=== PATIENT | male | born 1960 | race Caucasian/White ===

== ENCOUNTER 2018-01-26 13:15 | Inpatient (IN) | payer OTHER ==
[~2018-01-26] VITALS: Ht 182.9 cm; Wt 96.5 kg
[2018-01-26 13:48] LABS: BASOPHILS ABSOLUTE AUTO 0.03 K/mm3 (0.00-0.23); BASOPHILS PERCENT AUTO 0 % (0-2); EOSINOPHILS ABSOLUTE AUTO 0.03 K/mm3 (0.00-0.68); EOSINOPHILS PERCENT AUTO 0 % (0-6); Hemoglobin 12.3 g/dL (13.5-17.5); IMMATURE GRAN ABSOLUTE AUTO 0.04 K/mm3 (0.00-0.10); IMMATURE GRAN PERCENT AUTO 0 % (0-1); LYMPHOCYTES ABSOLUTE AUTO 1.45 K/mm3 (0.84-5.20); LYMPHOCYTES PERCENT AUTO 12 % (21-46); MONOCYTES ABSOLUTE AUTO 0.47 K/mm3 (0.16-1.47); MONOCYTES PERCENT AUTO 4 % (4-13); Mean Corpuscular HGB 18.5 pg (26.0-34.0); Mean Corpuscular HGB Conc 30.8 g/dL (31.5-36.5); Mean Corpuscular Volume 60 fL (80-100); Mean Platelet Volume 10.1 fL (9.1-12.4); NEUTROPHILS ABSOLUTE AUTO 9.82 K/mm3 (1.96-9.15); NEUTROPHILS PERCENT AUTO 83 % (41-73); Platelet Count 271 K/mm3 (150-400); RDW Standard Deviation 33.1 fL (35.1-46.3); Red Blood Cell Count 6.65 M/mm3 (4.30-5.90); White Blood Cell Count 11.84 K/mm3 (4.00-11.30)
[2018-01-26 14:12] LABS: Alanine Aminotransfer (ALT/SGP 21 U/L (12-78); Albumin, Blood 3.6 g/dL (3.4-5.0); Albumin/Globulin Ratio 0.9 (0.8-1.8); Alk Phos 114 U/L (50-136); Anion Gap 11 mmol/L (6-16); Aspartate Aminotrans (AST/SGOT 90 U/L (12-37); Bilirubin, Total 1.1 mg/dL (0.1-1.0); Blood Urea Nitrogen 25 mg/dL (8-24); Bun/Creatinine Ratio 22.7 (12.0-20.0); CO2, Blood 23 mmol/L (21-32); Chloride, Blood 102 mmol/L (98-108); Glomerular Filtration Rate >60 (60-); Glucose, Blood 399 mg/dL (70-99); Potassium, Blood 4.4 mmol/L (3.5-5.5); Sodium, Blood 136 mmol/L (136-145); Total Protein, Blood 7.6 g/dL (6.4-8.2)
[2018-01-26 15:30] LABS: International Normalized Ratio 0.97; Prothrombin Time Results 10.1 Sec (9.7-11.5)
[2018-01-26 18:47] LABS: Creatine Kinase MB 184.8 ng/mL (0.0-3.6)
[2018-01-26 19:10] LABS: CPK Creatine Kinase 4180 U/L (39-308); Creatine Kinase MB Index 4.4 (0.0-4.0); Troponin I >200.000 ng/mL (0.000-0.040)
[2018-01-27 02:18] LABS: Hematocrit 34.2 % (37.0-53.0); Hemoglobin 10.5 g/dL (13.5-17.5); Mean Corpuscular HGB 18.9 pg (26.0-34.0); Mean Corpuscular HGB Conc 30.7 g/dL (31.5-36.5); Mean Corpuscular Volume 61 fL (80-100); Mean Platelet Volume 10.2 fL (9.1-12.4); Platelet Count 254 K/mm3 (150-400); RDW Coefficient Variation 16.5 % (11.7-14.2); RDW Standard Deviation 34.5 fL (35.1-46.3); Red Blood Cell Count 5.57 M/mm3 (4.30-5.90); White Blood Cell Count 14.75 K/mm3 (4.00-11.30)
[2018-01-27 02:25] LABS: Albumin, Blood 2.8 g/dL (3.4-5.0); Anion Gap 11 mmol/L (6-16); Blood Urea Nitrogen 25 mg/dL (8-24); Bun/Creatinine Ratio 19.5 (12.0-20.0); CHOL/HDL RATIO 11.1; CO2, Blood 21 mmol/L (21-32); Calcium, Blood 7.7 mg/dL (8.5-10.1); Chloride, Blood 110 mmol/L (98-108); Cholesterol 267 mg/dL (50-200); Creatine Kinase MB 142.1 ng/mL (0.0-3.6); Creatinine, Blood 1.28 mg/dL (0.60-1.20); Glomerular Filtration Rate >60 (60-); Glucose, Blood 265 mg/dL (70-99); HDL Cholesterol 24 mg/dL (>39); LDL/HDL RATIO 7.9; Low Density Lipoprotein Chol 189 mg/dL (0-110); Phosphorus, Blood 2.3 mg/dL (2.5-4.9); Potassium, Blood 4.2 mmol/L (3.5-5.5); Sodium, Blood 142 mmol/L (136-145); Triglycerides 271 mg/dL (30-160); Very Low Density Lipoprot Chol 54 mg/dL (6-32)
[2018-01-27 02:39] LABS: CPK Creatine Kinase 2817 U/L (39-308); Troponin I >200.000 ng/mL (0.000-0.040)
[2018-01-27 08:36] LABS: Creatine Kinase MB 86.1 ng/mL (0.0-3.6)
[2018-01-27 09:06] LABS: CPK Creatine Kinase 1868 U/L (39-308); Creatine Kinase MB Index 4.6 (0.0-4.0)
[2018-01-27 09:10] LABS: Troponin I >200.000 ng/mL (0.000-0.040)
[2018-01-28 04:23] LABS: BASOPHILS ABSOLUTE AUTO 0.02 K/mm3 (0.00-0.23); BASOPHILS PERCENT AUTO 0 % (0-2); EOSINOPHILS ABSOLUTE AUTO 0.01 K/mm3 (0.00-0.68); EOSINOPHILS PERCENT AUTO 0 % (0-6); Hematocrit 30.6 % (37.0-53.0); Hemoglobin 9.2 g/dL (13.5-17.5); IMMATURE GRAN ABSOLUTE AUTO 0.04 K/mm3 (0.00-0.10); IMMATURE GRAN PERCENT AUTO 0 % (0-1); LYMPHOCYTES ABSOLUTE AUTO 1.63 K/mm3 (0.84-5.20); LYMPHOCYTES PERCENT AUTO 12 % (21-46); MONOCYTES PERCENT AUTO 8 % (4-13); Mean Corpuscular HGB 18.5 pg (26.0-34.0); Mean Corpuscular HGB Conc 30.1 g/dL (31.5-36.5); Mean Corpuscular Volume 61 fL (80-100); NEUTROPHILS ABSOLUTE AUTO 10.54 K/mm3 (1.96-9.15); NEUTROPHILS PERCENT AUTO 80 % (41-73); Platelet Count 212 K/mm3 (150-400); RDW Coefficient Variation 16.6 % (11.7-14.2); RDW Standard Deviation 35.1 fL (35.1-46.3); Red Blood Cell Count 4.98 M/mm3 (4.30-5.90); White Blood Cell Count 13.24 K/mm3 (4.00-11.30)
[2018-01-28 04:37] LABS: International Normalized Ratio 1.03; Prothrombin Time Results 10.7 Sec (9.7-11.5)
[2018-01-28 04:51] LABS: Bun/Creatinine Ratio 20.7 (12.0-20.0); Calcium, Blood 7.3 mg/dL (8.5-10.1); Creatinine, Blood 1.4 mg/dL (0.60-1.20); Magnesium, Blood 1.8 mg/dL (1.6-2.4); Potassium, Blood 4.4 mmol/L (3.5-5.5)
[2018-01-28 05:09] LABS: Troponin I 65.7 ng/mL (0.000-0.040)
[2018-01-28 05:25] LABS: Creatine Kinase MB 18.3 ng/mL (0.0-3.6); Creatine Kinase MB Index 2.1 (0.0-4.0)
[2018-01-29 04:33] LABS: Bun/Creatinine Ratio 26.6 (12.0-20.0); Creatinine, Blood 1.39 mg/dL (0.60-1.20); Magnesium, Blood 1.8 mg/dL (1.6-2.4)
[2018-01-29 04:37] LABS: Troponin I 30.1 ng/mL (0.000-0.040)
[2018-01-29] MEDS ORDERED: ASPI325 PO (08:35)
[2018-01-29] MEDS ORDERED: CLOP75 PO (08:36)
[2018-01-29] MEDS ORDERED: ATOR80 PO (08:36)
[2018-01-29] MEDS ORDERED: Novolog Fl100 UNIT/1 (08:37)
[2018-01-29] MEDS ORDERED: INSDET100 SC (08:38)
[2018-01-29] MEDS ORDERED: METO25ER PO (08:38)
[2018-01-29] MEDS ORDERED: NITR.4SL SL (08:39)
== END 2018-01-29 09:32 | disposition home or self-care (01) | DRG 246 ==
LOC: ER 13:15 → ICUE 15:35 → ER 15:35 → ICUE 15:37 → ICUW 15:37 → ICUE 15:54
PROVIDERS: Emergency Medicine; Hospitalist; Internal Medicine; Internal Medicine Cardiovascular Disease
PROC: 0270356 Dilation of Coronary Artery, One Artery, Bifurcation, with Two Drug-eluting Intraluminal Devices, Percutaneous Approach (ICD-10-PCS; principal; 2018-01-26)
PROC: 3E0234Z Introduction of Serum, Toxoid and Vaccine into Muscle, Percutaneous Approach (ICD-10-PCS; 2018-01-26)
PROC: 5A2204Z Restoration of Cardiac Rhythm, Single (ICD-10-PCS; 2018-01-26)
PROC: 4A023N7 Measurement of Cardiac Sampling and Pressure, Left Heart, Percutaneous Approach (ICD-10-PCS; 2018-01-26)
PROC: B2111ZZ Fluoroscopy of Multiple Coronary Arteries using Low Osmolar Contrast (ICD-10-PCS; 2018-01-26)
DX: I21.19 ST elevation (STEMI) myocardial infarction involving other coronary artery of inferior wall (principal); R57.0 Cardiogenic shock; J96.91 Respiratory failure, unspecified with hypoxia; I31.3 Pericardial effusion (noninflammatory); Z23 Encounter for immunization; E78.5 Hyperlipidemia, unspecified; I10 Essential (primary) hypertension; E11.9 Type 2 diabetes mellitus without complications; N28.9 Disorder of kidney and ureter, unspecified
CPT/HCPCS: 36415; 71046; 80048; 80053; 80061; 80069; 82550; 82553; 82947; 83036; 83735; 84484; 85025; 85027; 85610; 85730; 86850; 86900; 86901; 92960; 93005; 93010; 93306; 93308; 93458; 96361; 96374; 96375; 99152; 99153; 99285; C1725; C1769; C1874; C1894; C9113; C9606; J0153; J1265; J1644; J1815; J2250; J2405; J2550; J3010; J3246; J7030; J7040; J7060; Q9967

== ENCOUNTER → 2018-05-26 | Outpatient (CLI) | payer OTHER ==
[~2018-05-26] MED LIST: ASPI325 PO; ATOR80 PO; CLOP75 PO; INSDET100 SC; METO25ER PO; NITR.4SL SL; Novolog Fl100 UNIT/1
[2018-05-26 10:40] LABS: Bun/Creatinine Ratio 26.6 (12.0-20.0); Calcium, Blood 9.3 mg/dL (8.5-10.1); Creatinine, Blood 1.39 mg/dL (0.60-1.20); Potassium, Blood 4.6 mmol/L (3.5-5.5)
== END ==
LOC: LAB SHORT 08:24 → OLS 08:24
PROVIDERS: Registered Nurse
DX: E11.65 Type 2 diabetes mellitus with hyperglycemia (principal)
CPT/HCPCS: 36415; 80048; 83036

== ENCOUNTER → 2019-05-13 | Outpatient (CLI) | payer OTHER ==
[2019-05-13 13:37] LABS: Stool Occult Bld Immuno 1 Negative (NEGATIVE)
== END | disposition home or self-care (01) ==
LOC: LAB 10:00 → LAB SHORT 10:00
PROVIDERS: Family Medicine
DX: Z12.11 Encounter for screening for malignant neoplasm of colon (principal)
CPT/HCPCS: 82274

== ENCOUNTER → 2019-09-21 | Outpatient (CLI) | payer OTHER ==
[2019-09-21 17:26] LABS: Protein, Urine Random 436.7 mg/dL (0.0-11.9)
== END | disposition home or self-care (01) ==
LOC: LAB 14:00 → LAB SHORT 14:00
PROVIDERS: Internal Medicine
DX: N18.3 Chronic kidney disease, stage 3 (moderate) (principal)
CPT/HCPCS: 82570; 84156

== ENCOUNTER → 2019-09-28 | Outpatient (CLI) | payer OTHER ==
[2019-09-28 12:05] LABS: Protein, Urine Quantitative 373.7 mg/dL (0.0-11.9)
== END | disposition home or self-care (01) ==
LOC: OLS 08:58 → LAB SHORT 08:58
PROVIDERS: Internal Medicine
DX: N18.3 Chronic kidney disease, stage 3 (moderate) (principal)
CPT/HCPCS: 81050; 84156

== ENCOUNTER 2020-01-01 10:29 | Day surgery (SDC) | payer OTHER ==
[~2020-01-01] VITALS: Ht 182.9 cm; Wt 97.4 kg
[~2020-01-01 10:29] MED LIST changes: +ASPI325EC PO; +BASAGLAR K100 UNIT/2 SC; +ERGO50000 PO; +Humalog100 UNIT/1 SC; +LOSA50 PO; +NITROGLYCERIN0.4 MG SL
== END 2020-01-01 13:25 | disposition home or self-care (01) ==
LOC: ORSCSDS 10:29
PROVIDERS: Internal Medicine Gastroenterology
PROC: 0DB88ZX Excision of Small Intestine, Via Natural or Artificial Opening Endoscopic, Diagnostic (ICD-10-PCS; principal; 2020-01-01 11:45)
PROC: 0DB68ZX Excision of Stomach, Via Natural or Artificial Opening Endoscopic, Diagnostic (ICD-10-PCS; principal; 2020-01-01 11:45)
PROC: 0DB58ZX Excision of Esophagus, Via Natural or Artificial Opening Endoscopic, Diagnostic (ICD-10-PCS; principal; 2020-01-01 11:45)
PROC: 0DJD8ZZ Inspection of Lower Intestinal Tract, Via Natural or Artificial Opening Endoscopic (ICD-10-PCS; 2020-01-01 11:45)
DX: D50.9 Iron deficiency anemia, unspecified (principal); K22.10 Ulcer of esophagus without bleeding; K44.9 Diaphragmatic hernia without obstruction or gangrene; K29.80 Duodenitis without bleeding; E78.5 Hyperlipidemia, unspecified; K22.2 Esophageal obstruction; E11.9 Type 2 diabetes mellitus without complications; Z87.891 Personal history of nicotine dependence; I10 Essential (primary) hypertension; Z79.82 Long term (current) use of aspirin; Z79.4 Long term (current) use of insulin; Z79.899 Other long term (current) drug therapy
CPT/HCPCS: 82947; 88305; 88342; J2704; J7120

== ENCOUNTER 2020-11-02 06:45 | Day surgery (SDC) | payer OTHER ==
[~2020-11-02] VITALS: Ht 182.9 cm; Wt 99.0 kg
[~2020-11-02 06:45] MED LIST changes: -ASPI325EC PO; +Aspir 8181 MG PO; -BASAGLAR K100 UNIT/2 SC; +BASAGLAR K100 UNIT/6 SC; +FERSU300 PO; +FURO40 PO; +HUMALOG KW100 UNIT/1 SC; -Humalog100 UNIT/1 SC; +PANTOPRAZOLE SO40 M2 PO; +ROSUVASTATIN CA40 MG PO; +SODIUM BICARBO650 M1 PO; +TAMSULOSIN HCL0.4 M1 PO; +Vitamin D2000 UNIT PO
--- NOTE | 2020-11-02 08:20 | NUR ---
TO RECOVERY ROOM. PERMA CATH RIGHT UPPER SIDE DRY AND INTACT. STERI STRIPS INTACT AT RIGHT UPPER IJ. DENIES PAIN AT THIS TIME.
--- NOTE | 2020-11-02 09:45 | NUR ---
BLEEDING AT STERI STRIP SITEUPPER RIGHT PUNCTURE SITE. PRESSURE DRESSING APPLIED WITH GAUZE AND TAPE.
--- NOTE | 2020-11-02 10:05 | NUR ---
PRESSURE DRESSING RELEASED. STERI STRIPS REMOVED. SITE CLEANED WITH ALCOHOL. NEW STERI STRIPS APPLIED. GAUZE AND TAPE APPLIED. DRESSED FOR DISCHARGE. DISCHARGE INSTRUCTIONS GIVEN WITH VERBAL AND WRITTEN UNDERSTANDING.
--- NOTE | 2020-11-02 12:15 | NUR ---
2x2 is dry over steristrips. DISCHARGED TO [facility] FOR ANOTHER TEST VIA WHEELCHAIR.
== END 2020-11-02 12:45 | disposition home or self-care (01) ==
LOC: MHTC 06:45
DX: I13.2 Hypertensive heart and chronic kidney disease with heart failure and with stage 5 chronic kidney disease, or end stage renal disease (principal); E11.22 Type 2 diabetes mellitus with diabetic chronic kidney disease; N18.6 End stage renal disease; I50.9 Heart failure, unspecified; E78.5 Hyperlipidemia, unspecified; E11.40 Type 2 diabetes mellitus with diabetic neuropathy, unspecified; I25.10 Atherosclerotic heart disease of native coronary artery without angina pectoris; I25.2 Old myocardial infarction; Z95.5 Presence of coronary angioplasty implant and graft; Z79.82 Long term (current) use of aspirin; Z79.02 Long term (current) use of antithrombotics/antiplatelets; Z79.4 Long term (current) use of insulin; Z79.899 Other long term (current) drug therapy; Z87.891 Personal history of nicotine dependence
CPT/HCPCS: 36558; 76937; 77001; 82947; 99152; 99153; C1750; C1769; C1894; J1644; J2250; J3010; J7030

== ENCOUNTER 2021-01-23 05:32 | Day surgery (SDC) | payer OTHER, SELFPAY ==
[~2021-01-23] VITALS: Ht 182.9 cm; Wt 91.0 kg
--- NOTE | 2021-01-23 11:26 | NUR ---
RIGHT FEMORAL GROIN SITE SOFT NON-TENDER WITH NO HEMATOMA, NO PULSATILE BLEEDING WITH INTACT WADE AND TEGADERM IN PLACE. CALL LIGHT IN REACH; PT WATCHING TV.
--- NOTE | 2021-01-23 12:54 | NUR ---
PT HAS BEEN UP TO BATHROOM. R GROIN SITE REMAINS STABLE, NO BLEEDING OR HEMATOMA NOTED. DR MONTOYA SPEAKING WITH PT AT THIS TIME.
--- NOTE | 2021-01-23 13:13 | NUR ---
PT DRESSED, GROIN SITE STABLE. DISCHARGE INSTRUCTIONS REVIEWED WITH PT, VERBALIZES UNDERSTANDING. SALINE LOCK REMOVED WITH CATHETER INTACT. PT TO PRIVATE VEHICLE PER W/C.
[2021-06-06] MEDS ORDERED: GABA100 PO (15:18)
[2021-06-06] MEDS ORDERED: FERSU300 PO (15:19)
== END 2021-01-23 13:15 | disposition home or self-care (01) ==
LOC: MHTC 05:32
DX: I25.10 Atherosclerotic heart disease of native coronary artery without angina pectoris (principal); I50.9 Heart failure, unspecified; E11.22 Type 2 diabetes mellitus with diabetic chronic kidney disease; I13.2 Hypertensive heart and chronic kidney disease with heart failure and with stage 5 chronic kidney disease, or end stage renal disease; E78.5 Hyperlipidemia, unspecified; N18.6 End stage renal disease; Z99.2 Dependence on renal dialysis; Z79.4 Long term (current) use of insulin; Z79.01 Long term (current) use of anticoagulants; Z79.82 Long term (current) use of aspirin
CPT/HCPCS: 82947; 93458; 99152; 99153; C1769; C1894; J0360; J1644; J2250; J3010; J7030; J7050; Q9967

== ENCOUNTER 2021-03-24 00:15 | Day surgery (SDC) | payer OTHER | END 2021-03-24 10:20 | disposition home or self-care (01) | LOC: ATC 00:15 | DX: N18.6 End stage renal disease (principal); D63.8 Anemia in other chronic diseases classified elsewhere | CPT/HCPCS: 36415; 86850; 86900; 86901; 86923; J7050; P9016 ==

== ENCOUNTER 2021-06-07 11:02 | Day surgery (SDC) | payer OTHER ==
[~2021-06-07] VITALS: Ht 182.9 cm; Wt 91.0 kg
[~2021-06-07 11:02] MED LIST changes: +GABA100 PO
--- NOTE | 2021-06-07 13:50 | NUR ---
PT MEDICATED WITH 8MG ZOFRAN IV PER VERBAL ORDERS. APPEARED TO HAVE A NAUSEA INDUCED VAGAL EPISODE. BRIEF DECREASE IN HEARTRATE, DIAPHORESIS PRESENT, SLIGHT PALLOR TO SKIN NOTED. PT STATES HE HAD TROUBLE WITH NARCOTICS POST BYPASS SURGERY AND THIS FELT SIMILAR. INSTRUCTED PATIENT TO LET STAFF KNOW DURING ANY FUTURE PROCEDURES THAT SOME NARCOTICS HAVE CAUSED NAUSEA IN THE PAST.
--- NOTE | 2021-06-07 14:19 | NUR ---
PT SITTING UP IN RECLINER. CURRENTLY DENIES ANY PAIN OR NAUSEA. RIGHT ARM REMAINS NUMB FROM NERVE BLOCK.
--- NOTE | 2021-06-07 15:28 | NUR ---
IV DC'D, CATH INTACT. PT GIVEN DC INSTRUCTIONS, VERBALIZED UNDERSTANDING. WAS NAUSEATED AND HAD ADDITIONAL EPISODE OF EMESIS PRIOR TO DISCHARGE, BUT STILL WANTED TO BE DC'D HOME. OUT TO CAR VIA WHEELCHAIR, ACCOMPANIED BY DAUGHTER.
== END 2021-06-07 15:30 | disposition home or self-care (01) ==
LOC: MHTC 11:02
DX: I13.2 Hypertensive heart and chronic kidney disease with heart failure and with stage 5 chronic kidney disease, or end stage renal disease (principal); I50.9 Heart failure, unspecified; N18.6 End stage renal disease; E11.22 Type 2 diabetes mellitus with diabetic chronic kidney disease; I25.10 Atherosclerotic heart disease of native coronary artery without angina pectoris; E78.5 Hyperlipidemia, unspecified; Z95.5 Presence of coronary angioplasty implant and graft; E11.40 Type 2 diabetes mellitus with diabetic neuropathy, unspecified
CPT/HCPCS: 76937; 82947; 99152; 99153; A9270; C1725; C1769; C1889; C1894; J1644; J2250; J2405; J3010; J7030; J7040

== ENCOUNTER 2021-10-29 20:41 | Inpatient (IN) | payer OTHER ==
[~2021-10-29] VITALS: Ht 182.9 cm; Wt 97.5 kg
[~2021-10-29 20:41] MED LIST changes: -BASAGLAR K100 UNIT/6 SC; +INSULANPEN SC
[2021-10-29 21:23] LABS: Source, Urine Clean Catch
[2021-10-29 21:25] LABS: Appearance, Urine Clear (Clear); Bilirubin, Urine Neg (Neg); Blood, Urine 2+ (Neg); Color, Urine Yellow (P-Yellow); Glucose Qualitative, Urine Neg (Neg); Ketones, Urine Neg (Neg); Leukocyte Esterase, Urine Neg (Neg); Nitrite, Urine Neg (Neg); Protein, Urine 3+ (Neg); Urobilinogen, Urine NORM (Normal)
[2021-10-29 21:34] LABS: Bacteria Not Seen /hpf; Squamous Epithelial Cells Not Seen /hpf (Few); White Blood Cells, Urine Not Seen /hpf (0-5)
[2021-10-29 22:14] LABS: BASOPHILS ABSOLUTE AUTO 0.04 K/mm3 (0.00-0.23); BASOPHILS PERCENT AUTO 0 % (0-2); EOSINOPHILS ABSOLUTE AUTO 0.03 K/mm3 (0.00-0.68); EOSINOPHILS PERCENT AUTO 0 % (0-6); Hematocrit 34.8 % (37.0-53.0); Hemoglobin 10.8 g/dL (13.5-17.5); IMMATURE GRAN ABSOLUTE AUTO 0.04 K/mm3 (0.00-0.10); IMMATURE GRAN PERCENT AUTO 0 % (0-1); LYMPHOCYTES ABSOLUTE AUTO 0.61 K/mm3 (0.84-5.20); LYMPHOCYTES PERCENT AUTO 5 % (21-46); MONOCYTES PERCENT AUTO 4 % (4-13); Mean Corpuscular HGB 20.8 pg (26.0-34.0); Mean Corpuscular Volume 67 fL (80-100); NEUTROPHILS ABSOLUTE AUTO 10.18 K/mm3 (1.96-9.15); NEUTROPHILS PERCENT AUTO 89 % (41-73); Platelet Count 154 K/mm3 (150-400); RDW Coefficient Variation 18.5 % (11.7-14.2); RDW Standard Deviation 41.8 fL (35.1-46.3); Red Blood Cell Count 5.19 M/mm3 (4.30-5.90)
[2021-10-29 22:32] LABS: Albumin, Blood 4.1 g/dL (3.4-5.0); Bilirubin, Total 2.7 mg/dL (0.1-1.0); Bun/Creatinine Ratio 10.3 (12.0-20.0); Calcium, Blood 9.5 mg/dL (8.5-10.1); Creatinine, Blood 6.38 mg/dL (0.60-1.20); Globulin, Blood 4.3 g/dL (2.2-4.0); Potassium, Blood 4.5 mmol/L (3.5-5.5); Total Protein, Blood 8.4 g/dL (6.4-8.2)
[2021-10-29 23:58] LABS: Influenza A, PCR NEGATIVE (NEGATIVE); Influenza B, PCR NEGATIVE (NEGATIVE); Resp Syncytial Virus, PCR NEGATIVE (NEGATIVE); SARS-Cov-2 (COVID-19) PCR, MMC NEGATIVE (NEGATIVE)
[2021-10-30 08:20] LABS: BASOPHILS ABSOLUTE AUTO 0.03 K/mm3 (0.00-0.23); BASOPHILS PERCENT AUTO 0 % (0-2); EOSINOPHILS ABSOLUTE AUTO 0.01 K/mm3 (0.00-0.68); EOSINOPHILS PERCENT AUTO 0 % (0-6); Hematocrit 31.4 % (37.0-53.0); Hemoglobin 9.6 g/dL (13.5-17.5); IMMATURE GRAN ABSOLUTE AUTO 0.03 K/mm3 (0.00-0.10); IMMATURE GRAN PERCENT AUTO 0 % (0-1); LYMPHOCYTES ABSOLUTE AUTO 0.43 K/mm3 (0.84-5.20); LYMPHOCYTES PERCENT AUTO 6 % (21-46); MONOCYTES ABSOLUTE AUTO 0.43 K/mm3 (0.16-1.47); MONOCYTES PERCENT AUTO 6 % (4-13); Mean Corpuscular HGB 20.6 pg (26.0-34.0); Mean Corpuscular HGB Conc 30.6 g/dL (31.5-36.5); Mean Corpuscular Volume 68 fL (80-100); NEUTROPHILS ABSOLUTE AUTO 6.95 K/mm3 (1.96-9.15); NEUTROPHILS PERCENT AUTO 88 % (41-73); Platelet Count 123 K/mm3 (150-400); RDW Coefficient Variation 18.3 % (11.7-14.2); RDW Standard Deviation 42.8 fL (35.1-46.3); Red Blood Cell Count 4.65 M/mm3 (4.30-5.90); White Blood Cell Count 7.88 K/mm3 (4.00-11.30)
[2021-10-30 08:43] LABS: Albumin, Blood 3.3 g/dL (3.4-5.0); Anion Gap 15 mmol/L (6-16); Blood Urea Nitrogen 72 mg/dL (8-24); Bun/Creatinine Ratio 11.2 (12.0-20.0); CO2, Blood 20 mmol/L (21-32); Calcium, Blood 8.5 mg/dL (8.5-10.1); Chloride, Blood 101 mmol/L (98-108); Creatinine, Blood 6.43 mg/dL (0.60-1.20); Ferritin, Serum 457 ng/mL (26-388); Glomerular Filtration Rate 9 (60-); Glucose, Blood 112 mg/dL (70-99); Iron Serum 15 ug/dL (65-175); Percent Saturation 5.9 % (20.0-50.0); Phosphorus, Blood 4.1 mg/dL (2.5-4.9); Potassium, Blood 4.4 mmol/L (3.5-5.5); Sodium, Blood 136 mmol/L (136-145); Total Iron Binding Capacity 255 ug/dL (250-450)
[2021-10-30 12:30] LABS: Vancomycin, Random 14.8 ug/mL
--- NOTE | 2021-10-30 18:44 | NUR ---
ALERT AND ORIENTED, COMPLAINS OF CHILLS, FEBRILE. MEDICATED WITH TYLENOL 1000MG PO, EFFECTIVE. RECEIVED DIALYSIS, TOLERATED WELL. SAFETY MAINTAINED WITH CALL LACEY IN REACH.
--- NOTE | 2021-10-31 04:03 | NUR ---
TELE CHANGE PER SANDHYA CARDIOVASCULAR RADIOLOGIC TECHNOLOGIST PT HAS BEEN EXPERIENCING TRIGEMINAL PVC'S SINCE APPROX 0300. PT ASSESSED, DENIED SOB, CHEST PAIN, OR PRESSURE. VITALS ASSESSED. DR. COOMBS CONTACTED AND VERIFIED AM LAB DRAW OF BMP AND MAG. WILL CONTINUE TO MONITOR PT FOR S/S.
--- NOTE | 2021-10-31 04:21 | NUR ---
SHIFT SUMMARY PT A&O X4 AND IN PLEASENT MOOD T/O SHIFT. TELE CHANGE DURING SHIFT, DR. COOMBS CONTACTED- SEE NOTE. FEVER MEDICATED PER EMAR. PT TOLERATING ORAL INTAKE, DENIES N/V, AND VOIDING WELL. O2 SATS HAVE BEEN LOW 90'S WHILE ASLEEP- 2 L NC DURING REST, >95%. CALL LIGHT W/IN REACH.
[2021-10-31 05:06] LABS: BASOPHILS ABSOLUTE AUTO 0.03 K/mm3 (0.00-0.23); BASOPHILS PERCENT AUTO 1 % (0-2); EOSINOPHILS ABSOLUTE AUTO 0.01 K/mm3 (0.00-0.68); EOSINOPHILS PERCENT AUTO 0 % (0-6); Hematocrit 28.1 % (37.0-53.0); Hemoglobin 8.6 g/dL (13.5-17.5); IMMATURE GRAN ABSOLUTE AUTO 0.04 K/mm3 (0.00-0.10); IMMATURE GRAN PERCENT AUTO 1 % (0-1); LYMPHOCYTES ABSOLUTE AUTO 0.73 K/mm3 (0.84-5.20); LYMPHOCYTES PERCENT AUTO 11 % (21-46); MONOCYTES ABSOLUTE AUTO 0.36 K/mm3 (0.16-1.47); MONOCYTES PERCENT AUTO 6 % (4-13); Mean Corpuscular HGB 20.7 pg (26.0-34.0); Mean Corpuscular HGB Conc 30.6 g/dL (31.5-36.5); Mean Corpuscular Volume 68 fL (80-100); NEUTROPHILS ABSOLUTE AUTO 5.21 K/mm3 (1.96-9.15); NEUTROPHILS PERCENT AUTO 82 % (41-73); Platelet Count 114 K/mm3 (150-400); RDW Coefficient Variation 18.3 % (11.7-14.2); RDW Standard Deviation 43.1 fL (35.1-46.3); Red Blood Cell Count 4.15 M/mm3 (4.30-5.90); White Blood Cell Count 6.38 K/mm3 (4.00-11.30)
[2021-10-31 06:07] LABS: Magnesium, Blood 1.7 mg/dL (1.6-2.4)
[2021-10-31 06:09] LABS: Albumin, Blood 2.8 g/dL (3.4-5.0); Albumin/Globulin Ratio 0.9 (0.8-1.8); Bilirubin, Total 2.4 mg/dL (0.1-1.0); Bun/Creatinine Ratio 9.4 (12.0-20.0); Calcium, Blood 8.2 mg/dL (8.5-10.1); Creatinine, Blood 4.89 mg/dL (0.60-1.20); Globulin, Blood 3.2 g/dL (2.2-4.0); Potassium, Blood 3.6 mmol/L (3.5-5.5)
--- NOTE | 2021-10-31 09:15 | NUR ---
Echocardiogram completed.
[2021-10-31 15:32] LABS: Vancomycin, Random 7.6 ug/mL
--- NOTE | 2021-10-31 18:01 | NUR ---
PATIENT CURRENTLY IN ROOM WITH DR CASEY WHO IS REMOVING HIS HD CATH AT THIS TIME. PATIENT HAD SOME VOMITING THIS AM X 1, MEDICATED WITH ZOFRAN AND EFFECTIVE. PATIENT HAS HAD SOME DIARREA TODAY WELL, NEW ORDERS RECIEVED, IMMODIUM GIVEN. PATIENT IS ALERT AND ORIENTED X 4. ABLE TO MAKE NEEDS AND WANTS KNOWN. CALL LIGHT AND WATER IN EASY REACH. DR CHRISTINA CONSULTED DR SMALL TODAY FOR PATIENTS TOE WITH POSSIBLE SURGERY TOMORROW. NO SIGNS OR SYMPTOMS ACUTE DISTRESS NOTED. CALL LIGHT AND WATER IN EASY REACH. WILL MONITOR.
--- NOTE | 2021-11-01 03:51 | NUR ---
SHIFT SUMMARY PT A&O AND IN PLEASENT MOOD T/O SHIFT. PT RESTED COMFORTABLY IN BED T/O NIGHT. PT DENIES PAIN. TOLERATING PO INTAKE AND VOIDING WELL. VSS. CALL LIGHT W/IN REACH. DRESSING TO R UPPER CHEST WALL POST PERMA CATH REMOVAL, CDI. PLATINUM SMITH REPORTS NSR @ 81.
[2021-11-01 05:33] LABS: BASOPHILS ABSOLUTE AUTO 0.02 K/mm3 (0.00-0.23); BASOPHILS PERCENT AUTO 0 % (0-2); EOSINOPHILS ABSOLUTE AUTO 0.06 K/mm3 (0.00-0.68); EOSINOPHILS PERCENT AUTO 1 % (0-6); IMMATURE GRAN ABSOLUTE AUTO 0.02 K/mm3 (0.00-0.10); IMMATURE GRAN PERCENT AUTO 0 % (0-1); LYMPHOCYTES ABSOLUTE AUTO 0.98 K/mm3 (0.84-5.20); LYMPHOCYTES PERCENT AUTO 20 % (21-46); MONOCYTES ABSOLUTE AUTO 0.49 K/mm3 (0.16-1.47); MONOCYTES PERCENT AUTO 10 % (4-13); Mean Corpuscular HGB 20.9 pg (26.0-34.0); Mean Corpuscular Volume 67 fL (80-100); NEUTROPHILS ABSOLUTE AUTO 3.31 K/mm3 (1.96-9.15); NEUTROPHILS PERCENT AUTO 68 % (41-73); Platelet Count 111 K/mm3 (150-400); RDW Coefficient Variation 17.9 % (11.7-14.2); White Blood Cell Count 4.88 K/mm3 (4.00-11.30)
[2021-11-01 06:52] LABS: Albumin, Blood 2.9 g/dL (3.4-5.0); Anion Gap 17 mmol/L (6-16); Blood Urea Nitrogen 64 mg/dL (8-24); Bun/Creatinine Ratio 10.5 (12.0-20.0); CO2, Blood 23 mmol/L (21-32); Calcium, Blood 8.5 mg/dL (8.5-10.1); Chloride, Blood 96 mmol/L (98-108); Creatinine, Blood 6.12 mg/dL (0.60-1.20); Glomerular Filtration Rate 9 (60-); Glucose, Blood 157 mg/dL (70-99); Phosphorus, Blood 4.6 mg/dL (2.5-4.9); Potassium, Blood 3.8 mmol/L (3.5-5.5); Sodium, Blood 136 mmol/L (136-145)
--- NOTE | 2021-11-01 17:32 | NUR ---
PATIENT IS CURRENTLY SITTING UP IN BED EATING DINNER. NO SIGNS OR SYMPTOMS ACUTE DISTRESS NOTED, NO COMPLAINTS OF PAIN. NO COMPLAINTS OF NAUSEA TODAY. DIARREA MULTIPLE TIMES TODAY, MEDICATED WITH IMMODIUM PER ORDERS. DR CHÁVEZ SAW PATIENT TODAY AND INFORMED HIM HE WILL BE NPO AFTER MIDNIGHT TONIGHT FOR AMPUTATION OF RIGHT FOOT SECOND TOE TOMORROW. PATIENT IS ALERT AND WAKE, ABLE TO MAKE NEEDS AND WANTS KNOWN. CONTINUES IV ANTIBIOTICS. APPETITE BETTER TODAY. CALL LIGHT AND WATER IN EASY REACH. WILL MONITOR.
[2021-11-02 06:13] LABS: Anion Gap 12 mmol/L (6-16); Blood Urea Nitrogen 79 mg/dL (8-24); CO2, Blood 28 mmol/L (21-32); Calcium, Blood 8.4 mg/dL (8.5-10.1); Chloride, Blood 96 mmol/L (98-108); Creatinine, Blood 7.21 mg/dL (0.60-1.20); Glomerular Filtration Rate 8 (60-); Glucose, Blood 194 mg/dL (70-99); Phosphorus, Blood 5.1 mg/dL (2.5-4.9); Potassium, Blood 3.8 mmol/L (3.5-5.5); Sodium, Blood 136 mmol/L (136-145); Vancomycin, Random 14.9 ug/mL
--- NOTE | 2021-11-02 06:26 | NUR ---
SHIFT SUMMARY A/O X4, VSS, TOLERATING DIET, NPO SINCE MIDNIGHT FOR SURGERY, DENIES PAIN. NO ACUTE EVENTS THIS SHIFT. CALL LIGHT IN REACH, WILL CTM AND REPORT TO ONCOMING DAY RN.
[2021-11-02 07:04] LABS: BASOPHILS ABSOLUTE AUTO 0.02 K/mm3 (0.00-0.23); BASOPHILS PERCENT AUTO 0 % (0-2); EOSINOPHILS ABSOLUTE AUTO 0.14 K/mm3 (0.00-0.68); EOSINOPHILS PERCENT AUTO 3 % (0-6); IMMATURE GRAN ABSOLUTE AUTO 0.02 K/mm3 (0.00-0.10); IMMATURE GRAN PERCENT AUTO 0 % (0-1); LYMPHOCYTES ABSOLUTE AUTO 1.39 K/mm3 (0.84-5.20); LYMPHOCYTES PERCENT AUTO 25 % (21-46); MONOCYTES PERCENT AUTO 9 % (4-13); Mean Corpuscular HGB 20.8 pg (26.0-34.0); Mean Corpuscular Volume 67 fL (80-100); NEUTROPHILS ABSOLUTE AUTO 3.42 K/mm3 (1.96-9.15); NEUTROPHILS PERCENT AUTO 62 % (41-73); Platelet Count 125 K/mm3 (150-400); RDW Coefficient Variation 17.9 % (11.7-14.2); RDW Standard Deviation 41.9 fL (35.1-46.3); Red Blood Cell Count 4.33 M/mm3 (4.30-5.90); White Blood Cell Count 5.49 K/mm3 (4.00-11.30)
--- NOTE | 2021-11-02 10:04 | NUR ---
DISCHARGE: DISCHARGE INSTUCTIONS GIVEN AT THIS TIME. IV REMOVED. PATIENT VERBALIZED UNDERSTANDING OF INSTUCTIONS. PRESCRIPTIONS GIVEN TO PATIENT. ALL PERSONAL BELONGINGS LEFT WITH PATIENT. NO SIGNS OR SYMPTOMS ACUTE DISTERSS NOTED.
--- NOTE | 2021-11-02 11:29 | NUR ---
THE PATIENT WAS TO DAY SURGERY FOR HIS PROCEDURE.
--- NOTE | 2021-11-02 12:40 | NUR ---
11/02/21 1240 Kaylynn Michelle NO PREOP ANTIBIOTICS ORDERED PER .
--- NOTE | 2021-11-02 18:35 | NUR ---
PATIENT CURRENTLY LYING IN BED WITH NO SIGNS OR SYMPTOMS ACUTE DISTRESS NOTED. CALL LIGHT AND WATER IN EASY REACH. ABLE TO MAKE NEEDS AND WANTS KNOWN. PATIENT HAS SURGERY TODAY TO AMPUTATE PART OF HIS 2ND TOE ON RIGHT FOOT, DRESSING IS CDI, SURGICAL WALKING BOOT IN ROOM. PATIENT TO GO IN THE MORNING TO IR FOR HD CATH PLACEMENT. IV ANTIBIOTICS CONTINUE.
[2021-11-03 04:54] LABS: BASOPHILS ABSOLUTE AUTO 0.01 K/mm3 (0.00-0.23); BASOPHILS PERCENT AUTO 0 % (0-2); EOSINOPHILS PERCENT AUTO 0 % (0-6); Hemoglobin 10.3 g/dL (13.5-17.5); IMMATURE GRAN ABSOLUTE AUTO 0.02 K/mm3 (0.00-0.10); IMMATURE GRAN PERCENT AUTO 0 % (0-1); LYMPHOCYTES ABSOLUTE AUTO 0.83 K/mm3 (0.84-5.20); LYMPHOCYTES PERCENT AUTO 14 % (21-46); MONOCYTES ABSOLUTE AUTO 0.22 K/mm3 (0.16-1.47); MONOCYTES PERCENT AUTO 4 % (4-13); Mean Corpuscular HGB 20.6 pg (26.0-34.0); Mean Corpuscular HGB Conc 31.2 g/dL (31.5-36.5); Mean Corpuscular Volume 66 fL (80-100); NEUTROPHILS ABSOLUTE AUTO 4.93 K/mm3 (1.96-9.15); NEUTROPHILS PERCENT AUTO 82 % (41-73); Platelet Count 148 K/mm3 (150-400); RDW Coefficient Variation 18.1 % (11.7-14.2); RDW Standard Deviation 41.4 fL (35.1-46.3); White Blood Cell Count 6.01 K/mm3 (4.00-11.30)
[2021-11-03 05:26] LABS: Albumin, Blood 3.4 g/dL (3.4-5.0); Anion Gap 14 mmol/L (6-16); Blood Urea Nitrogen 87 mg/dL (8-24); Bun/Creatinine Ratio 12.2 (12.0-20.0); CO2, Blood 26 mmol/L (21-32); Calcium, Blood 8.9 mg/dL (8.5-10.1); Chloride, Blood 93 mmol/L (98-108); Creatinine, Blood 7.12 mg/dL (0.60-1.20); Glomerular Filtration Rate 8 (60-); Glucose, Blood 214 mg/dL (70-99); Phosphorus, Blood 5.2 mg/dL (2.5-4.9); Potassium, Blood 4.4 mmol/L (3.5-5.5); Sodium, Blood 133 mmol/L (136-145)
--- NOTE | 2021-11-03 07:11 | NUR ---
SHIFT SUMMARY POD1 R 2ND DIGIT TOE AMPUTATION, A/OX 4, VSS, TOLERATING DIET, NPO SINCE MIDNIGHT FOR HD CATHETER PLACEMENT LATER TODAY, DENIES PAIN, INDEPENDENT IN THE ROOM. NO ACUTE EVENTS THIS SHIFT, CALL LIGHT IN REACH, REPORT GIVEN TO DAY RN.
--- NOTE | 2021-11-03 17:07 | NUR ---
SHIFT SUMMARY: POD 1 RIGHT SECOND DIGIT AMPUTATION PATIENT IS ALERT AND ORIENTED X4. VS ARE WNL AND IS ON RA. PATIENT DENIES PAIN AT THIS TIME AND THROUGHOUT SHIFT. HIS RIGHT FOOT HAS GAUZE AND AN CAMMY WRAP THAT IS C/D/I. PULSES ARE STRONG AND IS ABLE TO WIGGLE OTHER TOES. PATIENT IS TOLERATING PO INTAKE. CALL LIGHT WITHIN REACH. DAUGHTER IS IN THE ROOM CURRENTLY. THE PLAN IS TO RECIEVE A TEMPORARY DIALYSIS PORT TONIGHT TO GET HIS DIALYSIS IN THE MORNING. THEN HE WILL RECIEVE HIS PERMANENT PORT ON SATURDAY.
--- NOTE | 2021-11-04 06:08 | NUR ---
VSS. SBA IN ROOM. +VOID. R 2ND TOE AMPUTATION DSG CDI W/ CAMMY WRAP IN PLACE. TEMPORARY HD PORT DSG CDI. CENTRAL LINE PATENT. NO COMPLAINTS. PT TO RECEIVE DIALYSIS THIS AM. WILL CONTINUE TO MONITOR
--- NOTE | 2021-11-04 15:34 | NUR ---
WOUND CARE TO RIGHT FOOT PATIENT REQUESTED THAT HE GET INSTRUCTIONS ON HOW TO CARE FOR HIS RIGHT SECOND TOE AMPUTATION. PATIENT STATED THAT THE BANDAGE HAD NOT BEEN CHANGED SINCE SURGERY. NO ORDER IN CHART REGARDING WOUND CARE. SPOKE WITH VALVE SETTER, PLAN TO REMOVE OLD BANDAGE, CLEAN WITH WOUND CLEANSER, PETROLEUM DRESSING PLACED ON SECOND TOE WITH GAUZE COVERING, FOOT WRAPPED WITH UNDERCAST WRAP, THEN WRAPPED LIGHTLY WITH CAMMY BANDAGE TO SECURE. AFTER DRESSING WAS REMOVED, SECOND TOE HAS NO DRAINAGE, CAP REFILL LESS THAN 3 SECONDS AND STITCHES ARE IN PLACE AND THE PATIENT DENIES PAIN. PATIENT REMINDED TO WEAR POST OP SHOE WHEN AMBULATING IN/OUT OF ROOM.
--- NOTE | 2021-11-04 17:50 | NUR ---
SHIFT SUMMARY PATIENT A&0x4. VSS AND PATIENT ON ROOM AIR. DENIES CHEST PAIN OR PRESSURE. POD 2 RIGHT SECOND DIGIT AMPUTATION. DRESSING CHANGED TODAY, SEE PREVIOUS NOTE. DENIES PAIN IN RIGHT FOOT/TOES. PATIENT WENT TO DIALYSIS TODAY. TOLERATING PO INTAKE WELL. VOIDING WITHOUT ASSISTANCE. PATIENT AMBULATING IN THE ROOM INDEOENDENTLY. NO OTHER SIGNIFICANT CHANGES, WILL REPORT TO DESIGN TRANSFERRER.
--- NOTE | 2021-11-05 05:15 | NUR ---
0400-NOTIFIED BY TELE PT HAVING R ON T. VS TAKEN. DR. MARTINEZ NOTIFIED, SPOKE W/ DEVON RN. DEVON PERFORMED EKG AT 0430. EKG SENT TO DR. MARTINEZ AND OLD EKG SENT TO DR MARTINEZ WELL FOR COMPARISON. PRIMARY RN TO CONT TO MONITOR.
[2021-11-05 05:30] LABS: BASOPHILS ABSOLUTE AUTO 0.03 K/mm3 (0.00-0.23); BASOPHILS PERCENT AUTO 0 % (0-2); EOSINOPHILS ABSOLUTE AUTO 0.09 K/mm3 (0.00-0.68); EOSINOPHILS PERCENT AUTO 1 % (0-6); Hematocrit 26.8 % (37.0-53.0); Hemoglobin 8.4 g/dL (13.5-17.5); IMMATURE GRAN ABSOLUTE AUTO 0.03 K/mm3 (0.00-0.10); IMMATURE GRAN PERCENT AUTO 0 % (0-1); LYMPHOCYTES ABSOLUTE AUTO 1.59 K/mm3 (0.84-5.20); LYMPHOCYTES PERCENT AUTO 21 % (21-46); MONOCYTES ABSOLUTE AUTO 0.53 K/mm3 (0.16-1.47); MONOCYTES PERCENT AUTO 7 % (4-13); Mean Corpuscular HGB 20.9 pg (26.0-34.0); Mean Corpuscular HGB Conc 31.3 g/dL (31.5-36.5); Mean Corpuscular Volume 67 fL (80-100); NEUTROPHILS ABSOLUTE AUTO 5.28 K/mm3 (1.96-9.15); NEUTROPHILS PERCENT AUTO 70 % (41-73); Platelet Count 166 K/mm3 (150-400); RDW Standard Deviation 41.8 fL (35.1-46.3); RETICULOCYTE ABSOLUTE 0.0585 M/mm3 (0.0200-0.1100); RETICULOCYTE COUNT PERCENT 1.46 % (0.50-2.50); Red Blood Cell Count 4.01 M/mm3 (4.30-5.90); White Blood Cell Count 7.55 K/mm3 (4.00-11.30)
[2021-11-05 05:57] LABS: Bun/Creatinine Ratio 12.5 (12.0-20.0); Calcium, Blood 8.2 mg/dL (8.5-10.1); Creatinine, Blood 4.72 mg/dL (0.60-1.20)
--- NOTE | 2021-11-05 06:12 | NUR ---
VSS. DENIES PAIN. +VOIDING. WEARING POST OP BOOT WHEN AMB IND IN ROOM. HS BS 230. AT APPROX 0400, NOTIFIED BY TELE THAT PT WAS RUNNING R ON T. VS TAKEN-STABLE. DR MARTINEZ NOTIFIED-SEE PREVIOUS NOTE. EKG COMPLETED. PT DENIES CP/CHEST PRESSURE. HX SD, CABG W/ STENTS. NO OTHER ISSUES OVERNIGHT. WILL CONTINUE TO MONITOR.
--- NOTE | 2021-11-05 18:39 | NUR ---
PATIENT HAS HAD A GOOD DAY TODAY. NO SIGNS OR SYMPTOMS ACUTE DISTRESS NOTED. CALL LIGHT AND WATER IN EASY REACH. PATIENT WILL BE NPO AT MIDNIGHT TONIGHT FOR PERM CATH PLACEMENT TOMORROW. PATIENT AMBULATED THE HALLS WITH HIS DAUGHTER TODAY. WALKING SHOE/BOOT IN PLACE. DRESSING TO RIGHT FOOT CDI. WILL MONITOR.
[2021-11-06 04:22] LABS: BASOPHILS ABSOLUTE AUTO 0.04 K/mm3 (0.00-0.23); BASOPHILS PERCENT AUTO 0 % (0-2); EOSINOPHILS ABSOLUTE AUTO 0.13 K/mm3 (0.00-0.68); EOSINOPHILS PERCENT AUTO 1 % (0-6); Hematocrit 28.6 % (37.0-53.0); Hemoglobin 8.8 g/dL (13.5-17.5); IMMATURE GRAN ABSOLUTE AUTO 0.06 K/mm3 (0.00-0.10); IMMATURE GRAN PERCENT AUTO 1 % (0-1); LYMPHOCYTES ABSOLUTE AUTO 1.73 K/mm3 (0.84-5.20); LYMPHOCYTES PERCENT AUTO 18 % (21-46); MONOCYTES ABSOLUTE AUTO 0.64 K/mm3 (0.16-1.47); MONOCYTES PERCENT AUTO 7 % (4-13); Mean Corpuscular HGB 20.8 pg (26.0-34.0); Mean Corpuscular HGB Conc 30.8 g/dL (31.5-36.5); Mean Corpuscular Volume 68 fL (80-100); NEUTROPHILS ABSOLUTE AUTO 7.05 K/mm3 (1.96-9.15); NEUTROPHILS PERCENT AUTO 73 % (41-73); Platelet Count 176 K/mm3 (150-400); RDW Coefficient Variation 18.6 % (11.7-14.2); RDW Standard Deviation 42.5 fL (35.1-46.3); Red Blood Cell Count 4.24 M/mm3 (4.30-5.90); White Blood Cell Count 9.65 K/mm3 (4.00-11.30)
[2021-11-06 04:44] LABS: Bun/Creatinine Ratio 13.5 (12.0-20.0); Calcium, Blood 8.7 mg/dL (8.5-10.1); Creatinine, Blood 5.03 mg/dL (0.60-1.20); Potassium, Blood 4.1 mmol/L (3.5-5.5)
--- NOTE | 2021-11-06 06:27 | NUR ---
VSS. DENIES PAIN. R 2ND TOE AMP DSG CDI. PT WEARING POST OP BOOT WHEN AMB IND IN ROOM. +VOID. NPO SINCE MIDNIGHT. PLAN FOR PERMANENT HD PORT PLACEMENT 11/06 WITH DIALYSIS IMMEDIATELY POST PLACEMENT. NO ISSUES OVERNIGHT.
[2021-11-06] MEDS ORDERED: ACET500 PO (12:40)
[2021-11-06] MEDS ORDERED: ATOR40TA PO (12:41)
[2021-11-06] MEDS ORDERED: BUME2 PO (12:42)
[2021-11-06] MEDS ORDERED: Calcium Acetat667 MG PO (12:49)
[2021-11-06] MEDS ORDERED: CEFAZOLIN SODIUM1 G1 IV (12:49)
--- NOTE | 2021-11-06 15:20 | NUR ---
Per Chart Review with Dr. Isabel patient is appropriate for discharge today. Pt denies barriers to discharge and is scheduled tomorrow at noon for outpatient HD catheter placement. I scheduled a hospital follow up with Dr. Moody Tracy on November at 04:20 PM. I also gave orders to infusion clinic for Ancef. Patient is to receive IV antibiotics at 3pm in the afternoon on off days hes not receiving HD at [facility]. Pt is aware and so is Dr. Ruvalcaba and Dr. Isabel. Pt's daughter Jocelynn will be helping with discharge transportation today.
--- NOTE | 2021-11-06 16:33 | NUR ---
DISCHARGE: DISCHARGE INSTUCTIONS GIVEN TO PATIENT AND DAUGHTER. THEY VERBALIZED UNDERSTANDING. PATIENT TO ARRIVED AT ADMISSIONS HERE AT [facility] TOMORROW AT NOON FOR HD CATH PLACEMENT. PATIENT IS TO BE NPO AFTER MIDNIGHT. PATIENT TO HAVE DIALYSIS SATURDAY, SATURDAY AND FRIDAYS FOR IV ANTIBIOTIC INFUSION THERAPY. DRESSING CHANGED TO FOOT BEFORE LEAVING. NO SIGNS OR SYMPTOMS ACUTE DISTRESS NOTED.
== END 2021-11-06 16:41 | disposition home or self-care (01) | DRG 853 ==
LOC: ER 20:41 → ERHOLD 10-30 01:39 → SURS 10-30 01:39
PROVIDERS: Family Medicine; Hospitalist; Pharmacist; Physician Assistant; Podiatrist Foot & Ankle Surgery; Student in an Organized Health Care Education/Training Program; ADMIT Internal Medicine
PROC: 0Y6R0Z1 Detachment at Right 2nd Toe, High, Open Approach (ICD-10-PCS; principal; 2021-11-02 11:45)
PROC: 02HV33Z Insertion of Infusion Device into Superior Vena Cava, Percutaneous Approach (ICD-10-PCS; 2021-11-03)
DX: A41.01 Sepsis due to Methicillin susceptible Staphylococcus aureus (principal); N18.6 End stage renal disease; M86.8X7 Other osteomyelitis, ankle and foot; I13.2 Hypertensive heart and chronic kidney disease with heart failure and with stage 5 chronic kidney disease, or end stage renal disease; I50.22 Chronic systolic (congestive) heart failure; T82.590A Other mechanical complication of surgically created arteriovenous fistula, initial encounter; T85.71XA Infection and inflammatory reaction due to peritoneal dialysis catheter, initial encounter; E11.621 Type 2 diabetes mellitus with foot ulcer; E11.22 Type 2 diabetes mellitus with diabetic chronic kidney disease; L97.519 Non-pressure chronic ulcer of other part of right foot with unspecified severity; E11.65 Type 2 diabetes mellitus with hyperglycemia; D63.1 Anemia in chronic kidney disease; E11.69 Type 2 diabetes mellitus with other specified complication; Z20.822 Contact with and (suspected) exposure to COVID-19; N40.0 Benign prostatic hyperplasia without lower urinary tract symptoms; D50.9 Iron deficiency anemia, unspecified; K21.9 Gastro-esophageal reflux disease without esophagitis; E78.5 Hyperlipidemia, unspecified; E86.0 Dehydration; I25.10 Atherosclerotic heart disease of native coronary artery without angina pectoris; Z99.2 Dependence on renal dialysis; I25.2 Old myocardial infarction; Z87.11 Personal history of peptic ulcer disease; Z95.1 Presence of aortocoronary bypass graft; Z79.4 Long term (current) use of insulin; Z79.82 Long term (current) use of aspirin; Z79.899 Other long term (current) drug therapy; Y83.1 Surgical operation with implant of artificial internal device as the cause of abnormal reaction of the patient, or of later complication, without mention of misadventure at the time of the procedure
CPT/HCPCS: 0241U; 36415; 36556; 70450; 71045; 73630; 80048; 80053; 80069; 80202; 81001; 82550; 82607; 82728; 82746; 82947; 83540; 83550; 83605; 83735; 85025; 85045; 85651; 86140; 87040; 87077; 87147; 87186; 88305; 88311; 93005; 93010; 93308; 93321; 96365; 96367; 96375; 97116; 97161; 99285-25; A9270; C1752; J0690; J0696; J0881; J1100; J1644; J1815; J2405; J2543; J2704; J2916; J3370; J7030; J7050

== ENCOUNTER 2021-11-07 11:56 | Day surgery (SDC) | payer OTHER ==
[~2021-11-07] VITALS: Ht 182.9 cm; Wt 95.4 kg
[~2021-11-07 11:56] MED LIST changes: +ACET500 PO; +ATOR40TA PO; +BUME2 PO; +CEFAZOLIN SODIUM1 G1 IV; +Calcium Acetat667 MG PO
== END 2021-11-07 15:00 | disposition home or self-care (01) ==
LOC: MHTC 11:56
DX: N18.6 End stage renal disease (principal)
CPT/HCPCS: 36558; 76937; 77001; 99152; C1750; C1769; C1894; J1644; J2250; J3010; J7030; J7040

== ENCOUNTER → 2022-03-28 | Outpatient (CLI) | payer OTHER ==
[2022-03-28 16:58] LABS: BASOPHILS ABSOLUTE AUTO 0.02 K/mm3 (0.00-0.23); BASOPHILS PERCENT AUTO 0 % (0-2); EOSINOPHILS ABSOLUTE AUTO 0.01 K/mm3 (0.00-0.68); EOSINOPHILS PERCENT AUTO 0 % (0-6); Hematocrit 34.9 % (37.0-53.0); Hemoglobin 11.2 g/dL (13.5-17.5); IMMATURE GRAN ABSOLUTE AUTO 0.06 K/mm3 (0.00-0.10); IMMATURE GRAN PERCENT AUTO 1 % (0-1); LYMPHOCYTES ABSOLUTE AUTO 0.44 K/mm3 (0.84-5.20); LYMPHOCYTES PERCENT AUTO 4 % (21-46); MONOCYTES ABSOLUTE AUTO 0.96 K/mm3 (0.16-1.47); MONOCYTES PERCENT AUTO 8 % (4-13); Mean Corpuscular HGB 21.4 pg (26.0-34.0); Mean Corpuscular HGB Conc 32.1 g/dL (31.5-36.5); Mean Corpuscular Volume 67 fL (80-100); NEUTROPHILS ABSOLUTE AUTO 10.27 K/mm3 (1.96-9.15); NEUTROPHILS PERCENT AUTO 87 % (41-73); Platelet Count 187 K/mm3 (150-400); RDW Coefficient Variation 18.2 % (11.7-14.2); RDW Standard Deviation 41.1 fL (35.1-46.3); Red Blood Cell Count 5.24 M/mm3 (4.30-5.90); White Blood Cell Count 11.76 K/mm3 (4.00-11.30)
[2022-03-28 17:10] LABS: Albumin, Blood 3.6 g/dL (3.4-5.0); Albumin/Globulin Ratio 0.9 (0.8-1.8); Bun/Creatinine Ratio 11.6 (12.0-20.0); Calcium, Blood 8.7 mg/dL (8.5-10.1); Globulin, Blood 3.9 g/dL (2.2-4.0); Potassium, Blood 4.1 mmol/L (3.5-5.5); Total Protein, Blood 7.5 g/dL (6.4-8.2)
[2022-03-28 17:11] LABS: Creatinine, Blood 8.17 mg/dL (0.60-1.20)
== END | disposition home or self-care (01) ==
LOC: LAB SHORT 16:55
PROVIDERS: Physician Assistant Medical
DX: N18.6 End stage renal disease (principal)
CPT/HCPCS: 80053; 85025

== ENCOUNTER 2022-04-12 16:30 | Inpatient (IN) | payer OTHER ==
[~2022-04-12] VITALS: Ht 182.9 cm; Wt 92.8 kg
[2022-04-12] MEDS ORDERED: ASPI81CH PO (17:40)
[2022-04-12] MEDS ORDERED: ATORVASTATIN CA80 M1 PO (17:41)
[2022-04-12 18:02] LABS: BASOPHILS ABSOLUTE AUTO 0.05 K/mm3 (0.00-0.23); BASOPHILS PERCENT AUTO 1 % (0-2); EOSINOPHILS ABSOLUTE AUTO 0.03 K/mm3 (0.00-0.68); EOSINOPHILS PERCENT AUTO 0 % (0-6); Hematocrit 33.2 % (37.0-53.0); Hemoglobin 10.1 g/dL (13.5-17.5); IMMATURE GRAN ABSOLUTE AUTO 0.06 K/mm3 (0.00-0.10); IMMATURE GRAN PERCENT AUTO 1 % (0-1); LYMPHOCYTES ABSOLUTE AUTO 1.85 K/mm3 (0.84-5.20); LYMPHOCYTES PERCENT AUTO 17 % (21-46); MONOCYTES ABSOLUTE AUTO 0.77 K/mm3 (0.16-1.47); MONOCYTES PERCENT AUTO 7 % (4-13); Mean Corpuscular HGB Conc 30.4 g/dL (31.5-36.5); Mean Corpuscular Volume 69 fL (80-100); NEUTROPHILS ABSOLUTE AUTO 8.02 K/mm3 (1.96-9.15); NEUTROPHILS PERCENT AUTO 74 % (41-73); Platelet Count 206 K/mm3 (150-400); RDW Coefficient Variation 18.6 % (11.7-14.2); RDW Standard Deviation 43.8 fL (35.1-46.3); White Blood Cell Count 10.78 K/mm3 (4.00-11.30)
[2022-04-12 18:06] LABS: Mean Platelet Volume 11.5 fL (9.1-12.4)
[2022-04-12 18:20] LABS: Albumin, Blood 3.6 g/dL (3.4-5.0); Albumin/Globulin Ratio 0.9 (0.8-1.8); Bilirubin, Total 2.5 mg/dL (0.1-1.0); Bun/Creatinine Ratio 9.8 (12.0-20.0); Calcium, Blood 9.4 mg/dL (8.5-10.1); Creatinine, Blood 6.3 mg/dL (0.60-1.20); Globulin, Blood 4.1 g/dL (2.2-4.0); Phosphorus, Blood 4.3 mg/dL (2.5-4.9); Potassium, Blood 4.2 mmol/L (3.5-5.5); Total Protein, Blood 7.7 g/dL (6.4-8.2)
--- NOTE | 2022-04-12 19:37 | NUR ---
SHIFT SUMMARY PT DIRECT ADMIT THIS SHIFT. VSS. UP AD SUDHA WITH STEADY GAIT. IV STARTED TO L. FA. ADMISSION COMPLETED. REPORT GIVEN TO YULISA JAVIER WHO ASSUMES CARE AT THIS TIME. BED IN LOW POSITION, CALL LIGHT WITHIN REACH. PT DENIES PAIN, SOB AND NV.
--- NOTE | 2022-04-13 04:37 | NUR ---
SHIFT SUMMARY: A/O X4, ADLIB IN ROOM, INDEPEDENT WITH ADL'S AND REPOSITIONING IN BED. NO COMPLAINTS OF PAIN THROUGHOUT THE NIGHT. PERMACATH SITE REMAINS APPROXIMATED WITH STERI STRIPS NO DRAINAGE NOTED. VITALS STABLE THROUGHOUT THE NIGHT. BED IN LOW POSITION, CALL LACEY IN REACH, CALLS APPROPRIATLEY.
[2022-04-13 06:00] LABS: Albumin, Blood 3.3 g/dL (3.4-5.0); Anion Gap 11 mmol/L (6-16); Blood Urea Nitrogen 68 mg/dL (8-24); Bun/Creatinine Ratio 10.2 (12.0-20.0); CO2, Blood 28 mmol/L (21-32); Chloride, Blood 98 mmol/L (98-108); Creatinine, Blood 6.69 mg/dL (0.60-1.20); Glomerular Filtration Rate 9 (60-); Glucose, Blood 202 mg/dL (70-99); Phosphorus, Blood 4.9 mg/dL (2.5-4.9); Potassium, Blood 3.8 mmol/L (3.5-5.5); Sodium, Blood 137 mmol/L (136-145)
--- NOTE | 2022-04-13 18:18 | NUR ---
SHIFT SUMMARY: NO ACUTE EVENTS. NO EVENTS ON TELEMETRY, SR 60'S. ON ROOM AIR, INDEPENDENT IN ROOM. DENIES PAIN. CARDIAC ECHO COMPLETED. AWAITING PERMACATH PLACEMENT ON SATURDAY.
[2022-04-14 05:17] LABS: BASOPHILS ABSOLUTE AUTO 0.05 K/mm3 (0.00-0.23); BASOPHILS PERCENT AUTO 1 % (0-2); EOSINOPHILS ABSOLUTE AUTO 0.03 K/mm3 (0.00-0.68); EOSINOPHILS PERCENT AUTO 0 % (0-6); Hematocrit 31.1 % (37.0-53.0); Hemoglobin 9.7 g/dL (13.5-17.5); IMMATURE GRAN ABSOLUTE AUTO 0.03 K/mm3 (0.00-0.10); IMMATURE GRAN PERCENT AUTO 0 % (0-1); LYMPHOCYTES ABSOLUTE AUTO 1.98 K/mm3 (0.84-5.20); LYMPHOCYTES PERCENT AUTO 19 % (21-46); MONOCYTES ABSOLUTE AUTO 0.72 K/mm3 (0.16-1.47); MONOCYTES PERCENT AUTO 7 % (4-13); Mean Corpuscular HGB 21.2 pg (26.0-34.0); Mean Corpuscular HGB Conc 31.2 g/dL (31.5-36.5); Mean Corpuscular Volume 68 fL (80-100); NEUTROPHILS ABSOLUTE AUTO 7.88 K/mm3 (1.96-9.15); NEUTROPHILS PERCENT AUTO 74 % (41-73); Platelet Count 196 K/mm3 (150-400); RDW Coefficient Variation 18.6 % (11.7-14.2); RDW Standard Deviation 41.5 fL (35.1-46.3); Red Blood Cell Count 4.58 M/mm3 (4.30-5.90); White Blood Cell Count 10.69 K/mm3 (4.00-11.30)
[2022-04-14 05:22] LABS: Mean Platelet Volume 11.7 fL (9.1-12.4)
[2022-04-14 05:49] LABS: Bun/Creatinine Ratio 11.3 (12.0-20.0); Calcium, Blood 9.1 mg/dL (8.5-10.1); Creatinine, Blood 6.88 mg/dL (0.60-1.20)
--- NOTE | 2022-04-14 05:57 | NUR ---
SHIFT SUMMARY: A/O X4, PATIENT ADLIB IN ROOM AND REPOSITIONS SELF IN BED. NO PAIN THROUGHOUT THE NIGHT. PERMACATH SITE ON RIGHT CHEST IS APPROXIMATED AND STERI STRIPS INTACT AND NO DRAINGAGE NOTED. BED IN LOW POSITION, CALL LACEY IN REACH
--- NOTE | 2022-04-14 17:49 | NUR ---
SHIFT SUMMARY: NO ACUTE EVENTS. TELEMETRY D/C'D. INDEPENDENT IN ROOM. DENIED PAIN. GOOD APPETITE; BUSINESS ADVISOR SAW HIM TODAY, MADE RECS AND GOT PROTEIN PROTIONS INCREASED. WAITING FOR PERMACATH PLACEMENT ON SATURDAY.
--- NOTE | 2022-04-15 04:29 | NUR ---
PT A & OX4. V/S WNL. HS ACCUCHECK: 234; NO COVERAGE REQUIRED. INDEPEDANT. IV TO L) FOREARM FLUSHED W/O DIFFICULTY. RENAL DIET. DYALISIS MONDAYS AND FRIDAYS. PT ABLE TO PRODUCE URINE. NO BM THIS SHIFT. WILL CONTINUE TO MONITOR.
[2022-04-15 05:31] LABS: Albumin, Blood 3.1 g/dL (3.4-5.0); Anion Gap 11 mmol/L (6-16); Blood Urea Nitrogen 88 mg/dL (8-24); Bun/Creatinine Ratio 12.3 (12.0-20.0); CO2, Blood 28 mmol/L (21-32); Calcium, Blood 9.1 mg/dL (8.5-10.1); Chloride, Blood 98 mmol/L (98-108); Creatinine, Blood 7.14 mg/dL (0.60-1.20); Glomerular Filtration Rate 8 (60-); Glucose, Blood 150 mg/dL (70-99); Phosphorus, Blood 5.2 mg/dL (2.5-4.9); Potassium, Blood 4.1 mmol/L (3.5-5.5); Sodium, Blood 137 mmol/L (136-145)
--- NOTE | 2022-04-15 16:43 | NUR ---
SHIFT SUMMARY: A&OX4. VS AND GLUCOSE STABLE. SMALL WOUND WITH STERI STRIPS RU CHEST WHERE PORT WAS REMOVED. BLOOD Cx NEGATIVE SO FAR. HARLEEN PO INTAKE. HE WILL BE NPO AFTER MIDNIGHT IN ANTICIPATION OF NEW PORT PLACEMENT IN THE [facility]. SHOWERED TODAY; IND W/ AMB AND ADLs. ASSISTED IN PUTTING ON COMPRESSION SOCKS. SALINE LOCK LFA PATENT. REPORT TO BE GIVEN TO ONCOMING NOC SHIFT NURSE.
--- NOTE | 2022-04-16 04:40 | NUR ---
PT A&OX4. V/S WNL. INDEPEDANT. RENAL DIET. IV TO L)FA. NPO SINCE MIDNIGHT. VOIDS W/O DIFFICULTY. NO BM THIS SHIFT. PT DENIED ANY PAIN. HS ACCUCHECK 160; NO COVERAGE INDICATED. DYALISIS MONDAYS AND FRIDAYS. WILL CONTINUE TO MONITOR.
[2022-04-16 11:56] LABS: SARS-Cov-2 (COVID-19) PCR, MMC NEGATIVE (NEGATIVE)
--- NOTE | 2022-04-16 17:57 | NUR ---
DAYSHIFT SUMMARY Pt NPO for permacath placement, insulin held today, PA aware. 1445 pt left unit and went to heart center for placement. After procedure, pt dialyzied in room. stated pt can discharge tonight when dialysis is completed. Notified Nephrology, no new discharge ordered given. Vitals stable, no insulin coverage needed this shift.
--- NOTE | 2022-04-16 18:48 | NUR ---
Discharge teaching provided, pt verbalized understanding. No new medicatios ordered. Pt will have outpatient hemodialysis. New permacath infusing right now, dressing CDI. Pt will go home around 1999, after dialysis is completed.
--- NOTE | 2022-04-16 20:06 | NUR ---
PT A & 0X4. DYALISYS COMPLETED BY BRITTANY MÁRQUEZ. V/S WNL. BS: 182. PT OFFERED 2100 SCHEDULED MEDS. PT REFUSED. HE SAID, " I HAVE THOSE AT HOME." IV TO L) FOREARM REMOVED. CATHETER TIP INTACT. PT DENIED ANY CONCERNS. AT 2004, PT D/C AND WHEELED OUT TO MAIN ENTRANCE BY WINTER Sosa CNA. PT STABLE UPON D/C.
== END 2022-04-16 20:08 | disposition home or self-care (01) | DRG 314 ==
LOC: MEDS 16:30
PROVIDERS: Internal Medicine; Internal Medicine Nephrology; Radiology Diagnostic Radiology; ADMIT Family Medicine
PROC: 3E03329 Introduction of Other Anti-infective into Peripheral Vein, Percutaneous Approach (ICD-10-PCS; 2022-04-12)
PROC: 0JH63XZ Insertion of Tunneled Vascular Access Device into Chest Subcutaneous Tissue and Fascia, Percutaneous Approach (ICD-10-PCS; principal; 2022-04-16)
PROC: 02HV33Z Insertion of Infusion Device into Superior Vena Cava, Percutaneous Approach (ICD-10-PCS; 2022-04-16)
PROC: B518YZA Fluoroscopy of Superior Vena Cava using Other Contrast, Guidance (ICD-10-PCS; 2022-04-16)
PROC: B548ZZA Ultrasonography of Superior Vena Cava, Guidance (ICD-10-PCS; 2022-04-16)
PROC: 5A1D70Z Performance of Urinary Filtration, Intermittent, Less than 6 Hours Per Day (ICD-10-PCS; 2022-04-16)
DX: T80.211A Bloodstream infection due to central venous catheter, initial encounter (principal); A41.01 Sepsis due to Methicillin susceptible Staphylococcus aureus; N18.6 End stage renal disease; I12.0 Hypertensive chronic kidney disease with stage 5 chronic kidney disease or end stage renal disease; Z20.822 Contact with and (suspected) exposure to COVID-19; E11.22 Type 2 diabetes mellitus with diabetic chronic kidney disease; I25.10 Atherosclerotic heart disease of native coronary artery without angina pectoris; Z95.1 Presence of aortocoronary bypass graft; E78.5 Hyperlipidemia, unspecified; D63.8 Anemia in other chronic diseases classified elsewhere; Z95.5 Presence of coronary angioplasty implant and graft; Z95.820 Peripheral vascular angioplasty status with implants and grafts; Z79.82 Long term (current) use of aspirin; Z79.02 Long term (current) use of antithrombotics/antiplatelets; Z79.4 Long term (current) use of insulin; Z79.899 Other long term (current) drug therapy; D63.1 Anemia in chronic kidney disease
CPT/HCPCS: 36415; 36558; 76937; 77001; 80048; 80053; 80069; 82947; 83036; 83735; 84100; 85025; 87040; 93306; 99152; 99153; A9270; C1750; C1769; C1894; J0690; J0881; J1644; J1815; J2250; J3010; J3370; J7030; J7040; J7060; Q9967; U0004

== ENCOUNTER 2022-07-25 06:39 | Day surgery (SDC) | payer OTHER ==
[~2022-07-25] VITALS: Ht 182.9 cm; Wt 95.0 kg
[~2022-07-25 06:39] MED LIST changes: +ASPI81CH PO; +ATORVASTATIN CA80 M1 PO; +FURO80 PO
[2022-07-25 07:21] LABS: BASOPHILS ABSOLUTE AUTO 0.05 K/mm3 (0.00-0.23); BASOPHILS PERCENT AUTO 1 % (0-2); EOSINOPHILS ABSOLUTE AUTO 0.17 K/mm3 (0.00-0.68); EOSINOPHILS PERCENT AUTO 2 % (0-6); Hemoglobin 11.3 g/dL (13.5-17.5); IMMATURE GRAN ABSOLUTE AUTO 0.01 K/mm3 (0.00-0.10); IMMATURE GRAN PERCENT AUTO 0 % (0-1); LYMPHOCYTES ABSOLUTE AUTO 1.73 K/mm3 (0.84-5.20); LYMPHOCYTES PERCENT AUTO 20 % (21-46); MONOCYTES ABSOLUTE AUTO 0.54 K/mm3 (0.16-1.47); MONOCYTES PERCENT AUTO 6 % (4-13); Mean Corpuscular HGB 21.4 pg (26.0-34.0); Mean Corpuscular HGB Conc 30.5 g/dL (31.5-36.5); Mean Corpuscular Volume 70 fL (80-100); NEUTROPHILS ABSOLUTE AUTO 5.96 K/mm3 (1.96-9.15); NEUTROPHILS PERCENT AUTO 71 % (41-73); Platelet Count 157 K/mm3 (150-400); RDW Coefficient Variation 17.5 % (11.7-14.2); RDW Standard Deviation 42.8 fL (35.1-46.3); Red Blood Cell Count 5.27 M/mm3 (4.30-5.90); White Blood Cell Count 8.46 K/mm3 (4.00-11.30)
[2022-07-25 07:44] LABS: Bun/Creatinine Ratio 7.6 (12.0-20.0); Creatinine, Blood 5.77 mg/dL (0.60-1.20); Potassium, Blood 3.9 mmol/L (3.5-5.5)
--- NOTE | 2022-07-25 10:24 | NUR ---
0924 PATIENT RETURNED FROM THE CATHLAB WITH RIGHT ARM DRESSING TO UPPER ARM FISTULA SITE. PATIENT PLACED ON THE MONITOR AND CALL LIGHT IN REACH. SBAR RECEIVED FROM YULISA ESPOSITO. PATIENT IS S/P BANDING TO THE FISTULA BY SERGE CONTRERAS NOTED AND SMALL AMOUNT OD OZZ NOTED UNDER THE DRESSING TO THE RIGHT UPPER ARM. VVS. PATIENT IS AWAKE AND NO COMPLAINTS IF PAIN. COFFEE SERVED. CALL LIGHT IN REACH.
--- NOTE | 2022-07-25 10:30 | NUR ---
BREAKFAST TRAY SERVED. VVS.
--- NOTE | 2022-07-25 11:31 | NUR ---
1115 BEGAN REMOVING AIR FROM THE TR BAND. REMOVED. 3 ML AND BLEEDING NOTED. REPLACED 2 ML AND WATCHED SITE. STABLE.
--- NOTE | 2022-07-25 11:32 | NUR ---
1130 REMOVED 2 ML OF AIR, NO FURTHER BLEEDING NOTED. CONTINUED TO MONITOR.
--- NOTE | 2022-07-25 12:16 | NUR ---
1145 TR BAND FLAT. SUTURES REMOVED AND 1 STERI STRIP APPLIED TO THE FISTULA SITE TO THE RIGHT UPPER ARM.
--- NOTE | 2022-07-25 12:17 | NUR ---
1215 REVEIWED DISCHARGE INSTRUCTIONS WITH THE PATIENT AND TR BAND OFF. RIGHT RADIAL SITE CLEANED AND CLOTH DOT APPLIED. VVS. STABLE. PATIENT UP OOB AND DRESSED. ALL BELONGINGS GATHERED. PIV REMOVED AND CATH TIP INTACT. PRESSURE DRESSING APPLIED.
--- NOTE | 2022-07-25 13:12 | NUR ---
1235 PATIENT DISCHARGED HOME VIA WHEELCHAIR.
== END 2022-07-25 23:41 | disposition home or self-care (01) ==
LOC: MHTC 06:39
PROVIDERS: Radiology Diagnostic Radiology
PROC: 037B3ZZ Dilation of Right Radial Artery, Percutaneous Approach (ICD-10-PCS; principal; 2022-07-25)
DX: I13.2 Hypertensive heart and chronic kidney disease with heart failure and with stage 5 chronic kidney disease, or end stage renal disease (principal); I50.9 Heart failure, unspecified; N18.6 End stage renal disease; E11.22 Type 2 diabetes mellitus with diabetic chronic kidney disease; I25.10 Atherosclerotic heart disease of native coronary artery without angina pectoris; E78.5 Hyperlipidemia, unspecified; I25.2 Old myocardial infarction; Z99.2 Dependence on renal dialysis; Z95.5 Presence of coronary angioplasty implant and graft; Z95.1 Presence of aortocoronary bypass graft; Z87.891 Personal history of nicotine dependence; Z79.82 Long term (current) use of aspirin; Z79.899 Other long term (current) drug therapy; Z79.02 Long term (current) use of antithrombotics/antiplatelets; Z79.4 Long term (current) use of insulin
CPT/HCPCS: 36902; 37607; 76937; 80048; 85025; 99152; 99153; C1725; C1769; C1887; C1894; J1644; J2250; J3010; J7030; Q9967

== ENCOUNTER 2022-09-20 06:54 | Day surgery (SDC) | payer OTHER ==
[~2022-09-20] VITALS: Ht 182.9 cm; Wt 96.0 kg
== END 2022-09-20 09:05 | disposition home or self-care (01) ==
LOC: MHTC 06:54
DX: N18.6 End stage renal disease (principal); Z53.9 Procedure and treatment not carried out, unspecified reason
CPT/HCPCS: J1644; J7030

== ENCOUNTER 2022-10-07 18:01 | Inpatient (IN) | payer OTHER ==
[~2022-10-07] VITALS: Ht 182.9 cm; Wt 97.3 kg
[~2022-10-07 18:01] MED LIST changes: -ATORVASTATIN CA80 M1 PO
[2022-10-07 18:47] LABS: BASOPHILS ABSOLUTE AUTO 0.03 K/mm3 (0.00-0.23); BASOPHILS PERCENT AUTO 0 % (0-2); EOSINOPHILS ABSOLUTE AUTO 0.04 K/mm3 (0.00-0.68); EOSINOPHILS PERCENT AUTO 0 % (0-6); Hematocrit 33.3 % (37.0-53.0); Hemoglobin 10.8 g/dL (13.5-17.5); IMMATURE GRAN ABSOLUTE AUTO 0.12 K/mm3 (0.00-0.10); IMMATURE GRAN PERCENT AUTO 1 % (0-1); LYMPHOCYTES ABSOLUTE AUTO 0.63 K/mm3 (0.84-5.20); LYMPHOCYTES PERCENT AUTO 4 % (21-46); MONOCYTES ABSOLUTE AUTO 0.59 K/mm3 (0.16-1.47); MONOCYTES PERCENT AUTO 3 % (4-13); Mean Corpuscular HGB 21.6 pg (26.0-34.0); Mean Corpuscular HGB Conc 32.4 g/dL (31.5-36.5); Mean Corpuscular Volume 67 fL (80-100); NEUTROPHILS ABSOLUTE AUTO 15.95 K/mm3 (1.96-9.15); NEUTROPHILS PERCENT AUTO 92 % (41-73); Platelet Count 132 K/mm3 (150-400); RDW Coefficient Variation 17.5 % (11.7-14.2); RDW Standard Deviation 39.7 fL (35.1-46.3); Red Blood Cell Count 4.99 M/mm3 (4.30-5.90); White Blood Cell Count 17.36 K/mm3 (4.00-11.30)
[2022-10-07 18:52] LABS: Albumin/Globulin Ratio 1.1 (0.8-1.8); Bilirubin, Total 4.3 mg/dL (0.1-1.0); Bun/Creatinine Ratio 9.6 (12.0-20.0); Calcium, Blood 9.7 mg/dL (8.5-10.1); Creatinine, Blood 6.76 mg/dL (0.60-1.20); Globulin, Blood 3.5 g/dL (2.2-4.0); Potassium, Blood 4.5 mmol/L (3.5-5.5); Total Protein, Blood 7.5 g/dL (6.4-8.2)
[2022-10-07 20:14] LABS: Influenza A, PCR NEGATIVE (NEGATIVE); Influenza B, PCR NEGATIVE (NEGATIVE); Resp Syncytial Virus, PCR NEGATIVE (NEGATIVE); SARS-Cov-2 (COVID-19) PCR, MMC NEGATIVE (NEGATIVE)
[2022-10-07 20:52] LABS: Bilirubin, Direct 0.6 mg/dL (0.0-0.3)
--- NOTE | 2022-10-07 21:56 | NUR ---
DIALYSIS ABELARDO BLOOD FROM DIALYSIS VENOUS PORT FOR 1 BC SET PER PROTOCAL. SAMPLES CARRIED TO THE LAB.
[2022-10-07] MEDS ORDERED: CALCIUM ACETAT667 M2 PO (23:01)
[2022-10-07] MEDS ORDERED: BUME1 PO (23:03)
[2022-10-07] MEDS ORDERED: PRED FORTE5 ML BOTHEYES (23:03)
[2022-10-07] MEDS ORDERED: Floxin10 ML BOTHEYES (23:04)
[2022-10-07] MEDS ORDERED: KETOROLAC TROMET5 M3 BOTHEYES (23:05)
[2022-10-08 05:21] LABS: BASOPHILS ABSOLUTE AUTO 0.04 K/mm3 (0.00-0.23); BASOPHILS PERCENT AUTO 0 % (0-2); EOSINOPHILS ABSOLUTE AUTO 0.05 K/mm3 (0.00-0.68); EOSINOPHILS PERCENT AUTO 0 % (0-6); Hematocrit 33.2 % (37.0-53.0); Hemoglobin 10.5 g/dL (13.5-17.5); IMMATURE GRAN ABSOLUTE AUTO 0.06 K/mm3 (0.00-0.10); IMMATURE GRAN PERCENT AUTO 1 % (0-1); LYMPHOCYTES ABSOLUTE AUTO 0.48 K/mm3 (0.84-5.20); LYMPHOCYTES PERCENT AUTO 4 % (21-46); MONOCYTES ABSOLUTE AUTO 0.44 K/mm3 (0.16-1.47); MONOCYTES PERCENT AUTO 3 % (4-13); Mean Corpuscular HGB 21.2 pg (26.0-34.0); Mean Corpuscular HGB Conc 31.6 g/dL (31.5-36.5); Mean Corpuscular Volume 67 fL (80-100); NEUTROPHILS ABSOLUTE AUTO 12.04 K/mm3 (1.96-9.15); NEUTROPHILS PERCENT AUTO 92 % (41-73); Platelet Count 117 K/mm3 (150-400); RDW Coefficient Variation 17.5 % (11.7-14.2); RDW Standard Deviation 39.6 fL (35.1-46.3); Red Blood Cell Count 4.95 M/mm3 (4.30-5.90); White Blood Cell Count 13.11 K/mm3 (4.00-11.30)
[2022-10-08 05:39] LABS: Albumin, Blood 3.7 g/dL (3.4-5.0); Anion Gap 12 mmol/L (6-16); Blood Urea Nitrogen 78 mg/dL (8-24); Bun/Creatinine Ratio 11.1 (12.0-20.0); CO2, Blood 27 mmol/L (21-32); Calcium, Blood 9.1 mg/dL (8.5-10.1); Chloride, Blood 93 mmol/L (98-108); Creatinine, Blood 7.01 mg/dL (0.60-1.20); Glomerular Filtration Rate 8 (60-); Glucose, Blood 161 mg/dL (70-99); Potassium, Blood 4.4 mmol/L (3.5-5.5); Sodium, Blood 132 mmol/L (136-145)
--- NOTE | 2022-10-08 07:40 | NUR ---
RADIO MAINTAINER SUMMARY: A&Ox4. PLEASANT AND COOPERATIVE WITH CARE. CALLS APPROPRIATELY AND IS ABLE TO COMMUNICATE NEEDS. Rx HYDRALAZINE 10MG IV Q6H PRN SBP >160 ORDERED AND ADMINISTERED VIA MEDIPORT. PT CONTINUES TO HAVE ELEVATED BP. EPISODES OF SOB, CHEST PRESSURE AND COUGHING UP PHLEGM. 45/30 AIRVO. OSTOMY BAG SHE CARES FOR HERSELF. STAND-BY ASSIST TO BEDSIDE COMMODE. DID NOT WANT TO TAKE PO MEDS THIS AM DUE TO NAUSEA/COUGHING SPELLS. MEDS DRAWN THIS AM FOR AZUL. REPORT TO ONCOMING RN.
--- NOTE | 2022-10-08 07:47 | NUR ---
DEAN OF GIRLS SUMMARY: A&Ox4. PLEASANT AND COOPERATIVE WITH CARE. CALLS APPROPRIATELY AND ABLE TO COMMUNICATE NEEDS. TELE SINUS @ 82. PRELIM BLOOD CULTURES POSITIVE. DR AZUL NOTIFIED THIS MORNING FOR CONSULT. LABS DRAWN THSI AM. RUNNING FEVER THIS AM; APAP GIVEN. UPON AM VITAL SIGNS PT NOTED TO HAVE O2 LEVEL OF 82%. PLACED ON 3L O2 VIA NC WITH GOOD RELIEF. ORIGINALLY SCHEDULED FOR DIALYSIS TODAY. LABS DRAWN THIS AM. REPORT TO ONCOMING YULISA.
--- NOTE | 2022-10-08 20:02 | NUR ---
SHIFT SUMMARY: PT A/O X 4, STANDBY ASSIST, PLEASANT AND COOPERATIVE WITH CARE. PT TITRATED TO 1 LPM VIA NC DUE TO SATS DROPPING TO 88% WHILE SLEEPING. PT O2 SATS ON ROOM AIR WHILE AWAKE WAS 94%. PT WENT TO DIALYSIS TODAY AND TOLERATED WELL. PT HAS POOR APPETITE AT THIS TIME WITH MINIMAL INTAKE. PT NPO AT MIDNIGHT FOR POSSIBLE PROCEDURE TO REMOVE DIALYSIS PORT.
[2022-10-09 06:15] LABS: Bun/Creatinine Ratio 10.6 (12.0-20.0); Calcium, Blood 8.6 mg/dL (8.5-10.1); Creatinine, Blood 5.4 mg/dL (0.60-1.20); Potassium, Blood 4.3 mmol/L (3.5-5.5)
--- NOTE | 2022-10-09 06:21 | NUR ---
RPG PROGRAMMER ANALYST SUMMARY: A&Ox4. PLEASANT AND COOPERATIVE WITH CARE. NPO AFTER MIDNIGHT IN ANTICIPATION OF PROCEDURE TO REMOVE DIALYSIS PORT TODAY. PRN APAP GIVEN LAST NIGHT FOR LOW-GRADE FEVER. ABx x1 ADMINISTERED. BLOOD CULTURES + STAPH A SO FAR. TELE SINUS @ 65. LABS DRAWN THIS AM. NO ACUTE CONCERNS T/O THE NIGHT. MAINTAINS SPO2 > 90% ON 1L/min VIA NC WHILE ASLEEP. WILL REPORT TO ONCOMING RN.
[2022-10-09 06:23] LABS: BASOPHILS ABSOLUTE AUTO 0.02 K/mm3 (0.00-0.23); BASOPHILS PERCENT AUTO 0 % (0-2); EOSINOPHILS ABSOLUTE AUTO 0.03 K/mm3 (0.00-0.68); EOSINOPHILS PERCENT AUTO 0 % (0-6); Hematocrit 32.1 % (37.0-53.0); Hemoglobin 10.3 g/dL (13.5-17.5); IMMATURE GRAN ABSOLUTE AUTO 0.05 K/mm3 (0.00-0.10); IMMATURE GRAN PERCENT AUTO 1 % (0-1); LYMPHOCYTES ABSOLUTE AUTO 1.02 K/mm3 (0.84-5.20); LYMPHOCYTES PERCENT AUTO 13 % (21-46); MONOCYTES ABSOLUTE AUTO 0.64 K/mm3 (0.16-1.47); MONOCYTES PERCENT AUTO 8 % (4-13); Mean Corpuscular HGB 21.3 pg (26.0-34.0); Mean Corpuscular HGB Conc 32.1 g/dL (31.5-36.5); Mean Corpuscular Volume 66 fL (80-100); NEUTROPHILS ABSOLUTE AUTO 6.09 K/mm3 (1.96-9.15); NEUTROPHILS PERCENT AUTO 78 % (41-73); Platelet Count 100 K/mm3 (150-400); RDW Coefficient Variation 17.8 % (11.7-14.2); RDW Standard Deviation 40.9 fL (35.1-46.3); Red Blood Cell Count 4.84 M/mm3 (4.30-5.90); White Blood Cell Count 7.85 K/mm3 (4.00-11.30)
[2022-10-09 10:16] LABS: Vancomycin, Random 21.9 ug/mL
--- NOTE | 2022-10-09 19:44 | NUR ---
SHIFT SUMMARY: PT A/O X4 IND, PLEASANT AND COOPERATIVE. PT NPO THROUGHOUT DAY. HAD PROCEDURE TO REMOVE DIALYSIS PORT. PT ARRIVED BACK AT SHIFT END AND APPEARED TO TOLERATE PROCEDURE WELL. PT A/O X 4 ABLE TO EAT REPORTED PAIN TOLERABLE. PT ASSISTED BACK TO BED. SITE HAD STERISTRIPS AND DRESSING OVER L UPPER CHEST WALL. REDNESS AND MOTTLING APPEARANCE NOTED AT AROUND BANDAGE, NO SWELLING OR DRAINAGE. PER RN GIVING REPORT PT TO DISCHARGE TOMORROW IF ABLE AND RETURN SATURDAY OUTPT TO HAVE PORT PLACED.
--- NOTE | 2022-10-10 05:20 | NUR ---
SUPERVISOR URANIUM PROCESSING SUMMARY: A&Ox4. PLEASANT AND COOPERATIVE WITH CARE. CALLS APPROPRIATELY AND ABLE TO COMMUNICATE NEEDS EFFECTIVELY. RECEIVED IV ABx LAST NIGHT WITHOUT ISSUE. BANDAGE TO LEFT UPPER CHEST C/D/I; NO PAIN FROM CATH REMOVAL. VSS. LUNG SOUNDS CLEAR. NO ACUTE CONCERNS T/O THE NIGHT. WILL REPORT TO ONCOMING RN.
[2022-10-10 07:50] LABS: Bun/Creatinine Ratio 12.1 (12.0-20.0); Calcium, Blood 8.5 mg/dL (8.5-10.1); Creatinine, Blood 6.45 mg/dL (0.60-1.20); Potassium, Blood 4.1 mmol/L (3.5-5.5)
--- NOTE | 2022-10-10 15:04 | NUR ---
Initial palliative care consult: Ivan is a 62 year old gentleman admitted with bactermia. He reports this is his third round of bactermia. He reports the first time it happened was 16 months ago, the second time was 8 months and now this time. He reports that he keeps his permcath clean, dry and covered at all times. He states that he was going to be having a fistula done in his right arm soon for dialysis but fears now that this may be delayed. He has a history of ESRD, DM, HTN, NSTEMI with multiple cardiac stents. He has cataracts bilaterally and states he is scheduled in December 2022 to have them removed. He is and is the caregiver for his . 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 He and his have been 40 years and have three adult daughters, one son in law and two grandchildren. His had a stroke 6 years ago and requires assistance with bathing. His biggest concern for today is being able to get his LOUISE done and the temporary HD cath placed so that he can have HD and go home tomorrow. He reports his daughters do not do the bathing for their mom. He states that his is very modest person. He states he doesn't want his daughters to have to care for him or his . He states "They all work realtime captioner and have lives of their own." Ivan reports that he has family support from his daughters. Jocelynn, one of his daughters, lives with Ivan and his . Jocelynn works realtime captioner but finds time to makes meals for the family. She also helps with some housework. Ivan reports he has an AD on file and Jocelynn is an alternate decision maker listed on it. He reports that he doesn't have a POLST but is interested in taking home forms for he and his to complete. Two POLST forms provided to Ivan. Ivan confirms his wishes for full code, full treatment at this time but states that his wishes are for no halfway support which he reports his daughter is aware of. Ivan has been in contact with social security and [employer] to see if they may qualify for some assistance. He has no questions at this time except to find out when the LOUISE will be done. Spoke with [facility] who will notify his bedside nurse of the time for the LOUISE. Ivan states that if the LOUISE shows infection in his heart that he will need to have ad terminal makeup operator IV antibiotic therapy. He states he will make time in his schedule complete the antibiotic therapy at HD and the FREDI if necessary. He denies any symptoms at present other that wishing to eat. Explained the NPO status for the LOUISE and he verbalized understanding. Bedside nursing updated. PC to continue to follow for advanced care planning and support prn.
--- NOTE | 2022-10-10 17:00 | NUR ---
SHIFT SUMMARY PT HAS BEEN AO THIS SHIFT. HIS OLD PERMA CATHETER DRESSING WAS CHANGED. HE ALSO TOOK A SHOWER DURING THIS SHIFT. HE WAS NPO FOR A LOUISE PROCEDURE BUT THAT PROCEDURE WAS CANCELLED. HE IS NO LONGER NPO AT THIS TIME. HIS TEMPORARY CATH PROCEDURE HAS YET TO BE SCHEDULED, THE PROVIDER IS IN THE PROCESS OF SCHEDULING AND NO NOTIFICATION HAS BEEN MADE. HE IS CONCERNED ABOUT HIS AT HOME AND HER CARE.
--- NOTE | 2022-10-11 04:22 | NUR ---
SUMMARY PATIENT PLEASANT ADN COOPERATIVE, TOOK MEDICATIONS WITHOUT DIFFICULTY, REMAINED FREE FROM HARM, INDEPENDENT IN ROOM.
[2022-10-11 06:05] LABS: Calcium, Blood 8.1 mg/dL (8.5-10.1)
[2022-10-11 06:42] LABS: BASOPHILS ABSOLUTE AUTO 0.02 K/mm3 (0.00-0.23); BASOPHILS PERCENT AUTO 0 % (0-2); EOSINOPHILS ABSOLUTE AUTO 0.16 K/mm3 (0.00-0.68); EOSINOPHILS PERCENT AUTO 3 % (0-6); Hematocrit 26.4 % (37.0-53.0); Hemoglobin 8.7 g/dL (13.5-17.5); IMMATURE GRAN ABSOLUTE AUTO 0.02 K/mm3 (0.00-0.10); IMMATURE GRAN PERCENT AUTO 0 % (0-1); LYMPHOCYTES ABSOLUTE AUTO 1.12 K/mm3 (0.84-5.20); LYMPHOCYTES PERCENT AUTO 21 % (21-46); MONOCYTES ABSOLUTE AUTO 0.47 K/mm3 (0.16-1.47); MONOCYTES PERCENT AUTO 9 % (4-13); Mean Corpuscular HGB 21.6 pg (26.0-34.0); Mean Corpuscular Volume 66 fL (80-100); NEUTROPHILS ABSOLUTE AUTO 3.47 K/mm3 (1.96-9.15); NEUTROPHILS PERCENT AUTO 66 % (41-73); Platelet Count 124 K/mm3 (150-400); RDW Coefficient Variation 17.5 % (11.7-14.2); RDW Standard Deviation 40.3 fL (35.1-46.3); Red Blood Cell Count 4.02 M/mm3 (4.30-5.90); White Blood Cell Count 5.26 K/mm3 (4.00-11.30)
[2022-10-11 11:13] LABS: Vancomycin, Random 16.2 ug/mL
--- NOTE | 2022-10-11 15:22 | NUR ---
PT TEMPORARILY TRANSFERRED TO THE ICU FOR A TEMPORARY CATH PLACEMENT. MEDICATIONS PRESCRIBED FOR PROCEDURE WERE GIVEN PRIOR SUCCESSFULLY.
--- NOTE | 2022-10-11 17:08 | NUR ---
DIALYSIS PT REQUESTED 3 HOURS INSTEAD OF 4. [address] KERNS, HE SAID THAT WAS OK.
[2022-10-11] MEDS ORDERED: PANT40 PO (18:05)
--- NOTE | 2022-10-11 18:33 | NUR ---
SHIFT SUMMARY PT RECEIVED TEMPORARY CATH PLACEMENT TODAY IN THE ICU. HE IS NOW IN DIALYSIS IN THE ROOM. HE HAS VACOMYCIN SCHEDULED FOR AFTER DIALYSIS AND THEN HE IS SCHEDULED TO DISCHARGE.
[2022-10-12] MEDS ORDERED: BASAGLAR K100 UNIT/6 SC (16:09)
[2022-10-12] MEDS ORDERED: METO100ER PO (16:09)
[2022-10-12] MEDS ORDERED: LOSA25 PO (16:11)
[2022-10-12] MEDS ORDERED: FURO80 PO (16:11)
[2022-10-12] MEDS ORDERED: HUMALOG KW100 UNIT/1 SC (16:13)
== END 2022-10-11 20:35 | disposition home or self-care (01) | DRG 314 ==
LOC: ER 18:01 → MEDS 22:56
PROVIDERS: Emergency Medicine; Family Medicine; Internal Medicine; ADMIT Family Medicine
PROC: 3E03329 Introduction of Other Anti-infective into Peripheral Vein, Percutaneous Approach (ICD-10-PCS; 2022-10-07)
PROC: 5A1D70Z Performance of Urinary Filtration, Intermittent, Less than 6 Hours Per Day (ICD-10-PCS; 2022-10-09)
PROC: 02PYX3Z Removal of Infusion Device from Great Vessel, External Approach (ICD-10-PCS; 2022-10-09)
PROC: 02HV33Z Insertion of Infusion Device into Superior Vena Cava, Percutaneous Approach (ICD-10-PCS; principal; 2022-10-11)
PROC: B548ZZA Ultrasonography of Superior Vena Cava, Guidance (ICD-10-PCS; 2022-10-11)
DX: T80.211A Bloodstream infection due to central venous catheter, initial encounter (principal); A41.01 Sepsis due to Methicillin susceptible Staphylococcus aureus; N18.6 End stage renal disease; T83.511A Infection and inflammatory reaction due to indwelling urethral catheter, initial encounter; I12.0 Hypertensive chronic kidney disease with stage 5 chronic kidney disease or end stage renal disease; E80.6 Other disorders of bilirubin metabolism; E11.22 Type 2 diabetes mellitus with diabetic chronic kidney disease; N40.0 Benign prostatic hyperplasia without lower urinary tract symptoms; K21.9 Gastro-esophageal reflux disease without esophagitis; E78.00 Pure hypercholesterolemia, unspecified; D63.1 Anemia in chronic kidney disease; I25.10 Atherosclerotic heart disease of native coronary artery without angina pectoris; Z20.822 Contact with and (suspected) exposure to COVID-19; K27.9 Peptic ulcer, site unspecified, unspecified as acute or chronic, without hemorrhage or perforation; Z95.5 Presence of coronary angioplasty implant and graft; Z99.2 Dependence on renal dialysis; I25.2 Old myocardial infarction; Z87.19 Personal history of other diseases of the digestive system; Z79.02 Long term (current) use of antithrombotics/antiplatelets; Z79.4 Long term (current) use of insulin; Z79.01 Long term (current) use of anticoagulants; Z79.899 Other long term (current) drug therapy; Z91.15 Patient's noncompliance with renal dialysis; Z79.82 Long term (current) use of aspirin; Z87.891 Personal history of nicotine dependence; Z89.429 Acquired absence of other toe(s), unspecified side; Y84.6 Urinary catheterization as the cause of abnormal reaction of the patient, or of later complication, without mention of misadventure at the time of the procedure; Y84.8 Other medical procedures as the cause of abnormal reaction of the patient, or of later complication, without mention of misadventure at the time of the procedure
CPT/HCPCS: 0241U; 36415; 36556; 71045; 76705; 80048; 80053; 80069; 80202; 82248; 82947; 83605; 83690; 84145; 85025; 87040; 87077; 87147; 87186; 93005; 93010; 93306; 94760; 96365; 96367; 99285-25; A9270; C1752; J0692; J1644; J1815; J2405; J2597; J3010; J3370; J7050

== ENCOUNTER 2022-12-04 14:14 | Day surgery (SDC) | payer OTHER ==
[~2022-12-04] VITALS: Ht 182.9 cm; Wt 95.1 kg
[~2022-12-04 14:14] MED LIST changes: +BASAGLAR K100 UNIT/6 SC; +BUME1 PO; +CALCIUM ACETAT667 M2 PO; +Floxin10 ML BOTHEYES; +KETOROLAC TROMET5 M3 BOTHEYES; +LOSA25 PO; +METO100ER PO; +PANT40 PO; +PRED FORTE5 ML BOTHEYES
--- NOTE | 2022-12-04 15:20 | NUR ---
12/04/[address] NOTIFIED OF [facility] OF 55. DEXTROSE ADIMISTERED PER DR'S ORDERS.
--- NOTE | 2022-12-04 16:41 | NUR ---
12/04/22 1641 Sandy Turner AFTER IV WAS REMOVED PATIENT STATED HE FELT NAUSEOUS AND WAS GIVEN EMESIS BAG AND BEGAN DRY HEAVING. PATIENT GIVEN ALCOHOL SWAB TO SMELL TO HELP WITH NAUSEA. NAUSEA IMPROVED AND PATIENT WAS ABLE TO TOLERATE PO FLUIDS. A FEW MINUTES LATER PATIENT VOMITED, WAS GIVEN EMESIS BAG AND ANOTHER ALCOHOL SWAB. PATIENT SAT AND RELAXED FOR A FEW MINUTES AND EXPRESSED READINESS TO GO HOME.
== END 2022-12-04 16:32 | disposition home or self-care (01) ==
LOC: ORSCSDS 14:14
PROVIDERS: Ophthalmology
PROC: 08RK3JZ Replacement of Left Lens with Synthetic Substitute, Percutaneous Approach (ICD-10-PCS; principal; 2022-12-04 15:30)
DX: H25.12 Age-related nuclear cataract, left eye (principal); H21.81 Floppy iris syndrome; E11.22 Type 2 diabetes mellitus with diabetic chronic kidney disease; I12.0 Hypertensive chronic kidney disease with stage 5 chronic kidney disease or end stage renal disease; N18.6 End stage renal disease; Z99.2 Dependence on renal dialysis; E78.5 Hyperlipidemia, unspecified; I25.10 Atherosclerotic heart disease of native coronary artery without angina pectoris; Z79.02 Long term (current) use of antithrombotics/antiplatelets; Z79.4 Long term (current) use of insulin; Z79.899 Other long term (current) drug therapy
CPT/HCPCS: 82947; J2001; J2250; J3010; J3301; J7040; V2632

== ENCOUNTER 2022-12-14 11:23 | Inpatient (IN) | payer OTHER ==
[~2022-12-14] VITALS: Ht 182.9 cm; Wt 98.0 kg
[2022-12-14 13:02] LABS: BASOPHILS ABSOLUTE AUTO 0.03 K/mm3 (0.00-0.23); BASOPHILS PERCENT AUTO 1 % (0-2); EOSINOPHILS ABSOLUTE AUTO 0.14 K/mm3 (0.00-0.68); EOSINOPHILS PERCENT AUTO 3 % (0-6); Hemoglobin 8.6 g/dL (13.5-17.5); IMMATURE GRAN PERCENT AUTO 0 % (0-1); LYMPHOCYTES ABSOLUTE AUTO 0.97 K/mm3 (0.84-5.20); LYMPHOCYTES PERCENT AUTO 18 % (21-46); MONOCYTES ABSOLUTE AUTO 0.44 K/mm3 (0.16-1.47); MONOCYTES PERCENT AUTO 8 % (4-13); Mean Corpuscular HGB 21.9 pg (26.0-34.0); Mean Corpuscular HGB Conc 31.9 g/dL (31.5-36.5); Mean Corpuscular Volume 69 fL (80-100); NEUTROPHILS ABSOLUTE AUTO 3.78 K/mm3 (1.96-9.15); NEUTROPHILS PERCENT AUTO 71 % (41-73); Platelet Count 149 K/mm3 (150-400); RDW Coefficient Variation 17.3 % (11.7-14.2); RDW Standard Deviation 41.8 fL (35.1-46.3); Red Blood Cell Count 3.93 M/mm3 (4.30-5.90); White Blood Cell Count 5.36 K/mm3 (4.00-11.30)
[2022-12-14 13:18] LABS: Albumin, Blood 3.6 g/dL (3.4-5.0); Albumin/Globulin Ratio 1.1 (0.8-1.8); Bilirubin, Total 3.2 mg/dL (0.1-1.0); Bun/Creatinine Ratio 14.3 (12.0-20.0); Calcium, Blood 9.4 mg/dL (8.5-10.1); Creatinine, Blood 5.79 mg/dL (0.60-1.20); Globulin, Blood 3.3 g/dL (2.2-4.0); Potassium, Blood 4.3 mmol/L (3.5-5.5); Total Protein, Blood 6.9 g/dL (6.4-8.2)
--- NOTE | 2022-12-14 18:50 | NUR ---
PATIENT IS ALERT AND ORIENTED AND COOPERATIVE WITH CARE. HE IS BEING DIALYZED AT THIS TIME IN HIS ROOM. PLAN IS FOR DR. NEVES TO PULL THE PERMACATH TOMORROW AFTER DIALYSIS (IF ORDERED). THE PATIENT WOULD LIKE THE PERMACATH TO BE REMOVED FIRST THING IN THE MORNING. PETER TERRY. INDEPENDENT IN THE ROOM. 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
[2022-12-14 20:51] LABS: Vancomycin, Random 15.6 ug/mL
--- NOTE | 2022-12-14 21:08 | NUR ---
POST TX NOTE; PT REQUESTED TX STOPPED DUE TO SEVERE CRAMPING, PT INSISTED ON STANDING AT BEDSIDE. TX STOPPED AT 2004, DR KERNS NOTIFIED. PT IN STABLE CONDITION WHEN BLOOD RETURNED. CONTINUES WITH SOME CRAMPING. GÓMEZ
--- NOTE | 2022-12-15 03:08 | NUR ---
Patient resting in bed, no complaints of pain or discomfort.
[2022-12-15 12:47] LABS: Vancomycin, Random 15.8 ug/mL
[2022-12-15 16:13] LABS: BASOPHILS ABSOLUTE AUTO 0.02 K/mm3 (0.00-0.23); BASOPHILS PERCENT AUTO 0 % (0-2); EOSINOPHILS ABSOLUTE AUTO 0.16 K/mm3 (0.00-0.68); EOSINOPHILS PERCENT AUTO 3 % (0-6); Hematocrit 26.1 % (37.0-53.0); Hemoglobin 8.5 g/dL (13.5-17.5); IMMATURE GRAN ABSOLUTE AUTO 0.01 K/mm3 (0.00-0.10); IMMATURE GRAN PERCENT AUTO 0 % (0-1); LYMPHOCYTES ABSOLUTE AUTO 1.32 K/mm3 (0.84-5.20); LYMPHOCYTES PERCENT AUTO 23 % (21-46); MONOCYTES ABSOLUTE AUTO 0.42 K/mm3 (0.16-1.47); MONOCYTES PERCENT AUTO 7 % (4-13); Mean Corpuscular HGB 21.7 pg (26.0-34.0); Mean Corpuscular HGB Conc 32.6 g/dL (31.5-36.5); Mean Corpuscular Volume 67 fL (80-100); NEUTROPHILS ABSOLUTE AUTO 3.71 K/mm3 (1.96-9.15); NEUTROPHILS PERCENT AUTO 66 % (41-73); Platelet Count 138 K/mm3 (150-400); RDW Standard Deviation 39.5 fL (35.1-46.3); Red Blood Cell Count 3.91 M/mm3 (4.30-5.90); White Blood Cell Count 5.64 K/mm3 (4.00-11.30)
[2022-12-15 16:16] LABS: Albumin, Blood 3.4 g/dL (3.4-5.0); Anion Gap 8 mmol/L (6-16); Blood Urea Nitrogen 57 mg/dL (8-24); Bun/Creatinine Ratio 12.8 (12.0-20.0); CO2, Blood 27 mmol/L (21-32); Calcium, Blood 8.3 mg/dL (8.5-10.1); Chloride, Blood 98 mmol/L (98-108); Creatinine, Blood 4.47 mg/dL (0.60-1.20); Glomerular Filtration Rate 14 (60-); Glucose, Blood 204 mg/dL (70-99); Magnesium, Blood 2.2 mg/dL (1.6-2.4); Phosphorus, Blood 2.7 mg/dL (2.5-4.9); Potassium, Blood 4.1 mmol/L (3.5-5.5); Sodium, Blood 133 mmol/L (136-145)
--- NOTE | 2022-12-15 17:54 | NUR ---
PERMACATH REMOVED THIS SHIFT. XRAY WAS DONE AFTERWARD AND SHOWS THE CATH REMOVAL WAS COMPLETE. PATIENT WILL CONSULT WITH DR. CASEY ON SATURDAY FOR NEW CATH PLACEMENT. PLAN IS FOR DIALYSIS AFTERWARD SAT, SAT, SATURDAY. PATIENT IS TOLERATING VANCO WELL. MOOD IS GOOD. DAUGHTER HERE VISITING THIS SHIFT. AN ECHO WAS DONE, BUT RESULT IS NOT YET ENTERED. BLOOD SUGARS HAVE BEEN SLIGHTLY ELEVATED WITH SS COVERAGE NEEDED.
[2022-12-16 12:34] LABS: Vancomycin, Random 20.6 ug/mL
--- NOTE | 2022-12-16 19:32 | NUR ---
SHIFT SUMMARY: PT A&O X4, PLEASANT, HAPPY AND COOPERATIVE WITH STAFF. PT HAD NO COMPLAINTS OF PAIN OR DISCOMFORT. PT AMBULATED THROUGH THE HALLS INDEPENDANTLY WITH FAMILY, NO SOB OR CHEST PAIN. PT ASSESSED BY TARUN HAYWOOD FOR LABS TO BE DRAWN AND RESULTS AVAILABLE. PT IN BED WITH CALL LIGHT WITHIN REACH.
--- NOTE | 2022-12-17 05:13 | NUR ---
SUMMARY: PATIENT DID WELL OVERNIGHT. AWAITING CONSULT WITH IR TO CHECK STATUS OF AV FISTULA HEALING. REMOVED CATHETER SITE WNL. PATIENT AOX4, INDEPENDENT IN ROOM. VSS. CALLS APPROPRIATLY.
--- NOTE | 2022-12-17 19:17 | NUR ---
PT ALERT, RESTING IN BED. NO S/S OF ACUTE DISTRESS, SAFETY MEASURES IN PLACE REPORT GIVEN TO ON COMING NURSE.
--- NOTE | 2022-12-18 03:56 | NUR ---
SHIFT SUMMARY ADMITTED FOR BACTEREMIA. FULL CODE. INFECTED DIALYSIS PORT ON LEFT CHEST WALL. 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 DIALYSIS SCHEDULED ON MONDAYS, WEDNESDAYS, AND FRIDAYS. TELEMETRY: NSR @ 64 BPM. [facility]. A&O X4. DR. KERNS IS RENAL CONSULT. HE LIVES WITH HIS FAMILY. HE IS ON RA, INDEPENDENT, ADA DIET.
[2022-12-18 05:46] LABS: Albumin, Blood 3.9 g/dL (3.4-5.0); Anion Gap 7 mmol/L (6-16); Blood Urea Nitrogen 80 mg/dL (8-24); Bun/Creatinine Ratio 14.3 (12.0-20.0); CO2, Blood 25 mmol/L (21-32); Calcium, Blood 9.5 mg/dL (8.5-10.1); Chloride, Blood 100 mmol/L (98-108); Creatinine, Blood 5.59 mg/dL (0.60-1.20); Glomerular Filtration Rate 11 (60-); Glucose, Blood 157 mg/dL (70-99); Sodium, Blood 132 mmol/L (136-145)
[2022-12-18 05:49] LABS: BASOPHILS ABSOLUTE AUTO 0.06 K/mm3 (0.00-0.23); BASOPHILS PERCENT AUTO 1 % (0-2); EOSINOPHILS ABSOLUTE AUTO 0.16 K/mm3 (0.00-0.68); EOSINOPHILS PERCENT AUTO 2 % (0-6); Hematocrit 29.3 % (37.0-53.0); Hemoglobin 9.4 g/dL (13.5-17.5); IMMATURE GRAN ABSOLUTE AUTO 0.03 K/mm3 (0.00-0.10); IMMATURE GRAN PERCENT AUTO 0 % (0-1); LYMPHOCYTES ABSOLUTE AUTO 1.72 K/mm3 (0.84-5.20); LYMPHOCYTES PERCENT AUTO 18 % (21-46); MONOCYTES ABSOLUTE AUTO 0.51 K/mm3 (0.16-1.47); MONOCYTES PERCENT AUTO 5 % (4-13); Mean Corpuscular HGB 21.8 pg (26.0-34.0); Mean Corpuscular HGB Conc 32.1 g/dL (31.5-36.5); Mean Corpuscular Volume 68 fL (80-100); NEUTROPHILS ABSOLUTE AUTO 7.31 K/mm3 (1.96-9.15); NEUTROPHILS PERCENT AUTO 75 % (41-73); Platelet Count 176 K/mm3 (150-400); RDW Coefficient Variation 17.6 % (11.7-14.2); RDW Standard Deviation 41.1 fL (35.1-46.3); Red Blood Cell Count 4.32 M/mm3 (4.30-5.90); White Blood Cell Count 9.79 K/mm3 (4.00-11.30)
--- NOTE | 2022-12-18 16:39 | NUR ---
PATIENT IS S/P LOUISE ADN NEED TO BE NPO FOR TWO HOURS UNTIL 6 PM AND THEN GAG REFLEX CHECKED. THEN IF GAG REFLEX RETURNED MAY RESUME DIET PER MD ORDERS.
--- NOTE | 2022-12-18 18:25 | NUR ---
SHIFT SUMMARY PT A&OX4, COOPERATIVE WITH CARE, INDEPENDENT. NPO T/O SHIFT, INSULIN HELD. PT TRANSPORTED TO [facility]URE AT 1515 AND RETURNED APPROX 1700. VITALS STABLE FOR PT. PT WAS ABLE TO DRINK WATER WITHOUT ISSUE AND ADVANCED TO PREVIOUS ADA DIET. CURRENTLY VISITING WITH FAMILY, EATING DINNER. CALL LIGHT WITHIN REACH. NO ACUTE CHANGES NOTED DURING THIS SHIFT.
--- NOTE | 2022-12-19 04:18 | NUR ---
SHIFT SUMMARY; PT IS AXO X4 AND INDEPENDENT IN THE ROOM. THE PT RESTED IN BED T/O THE NIGHT WITH NO ACUTE CHANGES. THE PT DENIES ANY PAIN, SOB, N/V OR NUMBNESS OR TINGLING. TELE IS IN PLACE, NSR IN THE 60'S. CURRENTLY THE PT IS SLEEPING IN BED WITH THE BED IN THE LOWEST POSITION AND THE CALL LIGHT AT BEDSIDE.
[2022-12-19 06:00] LABS: BASOPHILS ABSOLUTE AUTO 0.05 K/mm3 (0.00-0.23); BASOPHILS PERCENT AUTO 1 % (0-2); EOSINOPHILS PERCENT AUTO 1 % (0-6); Hematocrit 26.9 % (37.0-53.0); Hemoglobin 8.7 g/dL (13.5-17.5); IMMATURE GRAN ABSOLUTE AUTO 0.03 K/mm3 (0.00-0.10); IMMATURE GRAN PERCENT AUTO 0 % (0-1); LYMPHOCYTES ABSOLUTE AUTO 1.29 K/mm3 (0.84-5.20); LYMPHOCYTES PERCENT AUTO 18 % (21-46); MONOCYTES ABSOLUTE AUTO 0.42 K/mm3 (0.16-1.47); MONOCYTES PERCENT AUTO 6 % (4-13); Mean Corpuscular HGB 21.8 pg (26.0-34.0); Mean Corpuscular HGB Conc 32.3 g/dL (31.5-36.5); Mean Corpuscular Volume 67 fL (80-100); NEUTROPHILS ABSOLUTE AUTO 5.26 K/mm3 (1.96-9.15); NEUTROPHILS PERCENT AUTO 74 % (41-73); Platelet Count 185 K/mm3 (150-400); RDW Coefficient Variation 17.6 % (11.7-14.2); RDW Standard Deviation 40.9 fL (35.1-46.3); White Blood Cell Count 7.15 K/mm3 (4.00-11.30)
[2022-12-19 06:19] LABS: Bun/Creatinine Ratio 15.1 (12.0-20.0); Calcium, Blood 8.9 mg/dL (8.5-10.1); Creatinine, Blood 5.76 mg/dL (0.60-1.20); Potassium, Blood 5.9 mmol/L (3.5-5.5)
[2022-12-19 08:08] LABS: Vancomycin, Random 14.9 ug/mL
--- NOTE | 2022-12-19 19:27 | NUR ---
SHIFT SUMMARY- PT IS A/O, PLESANT AND COOPERATIVE. WENT FOR PERMACATH PLACMENT THIS EVENING. PLAN IS FOR DIALYSIS FIRST THING TOMORROW MORNING.
--- NOTE | 2022-12-19 20:47 | NUR ---
NURSE NOTE PT ARRIVED BACK F/PRODCEDUE TO PLACE LEFT WALL PERMA CATH. PT A/OX4; XFERED F/WHEELCHAIR; REPORTEDLY DROWSY. PT EATING AND TOLERATDING WELL. PER REPORT HAD SOME ISSUES WITH SITE BLEEDING; NURSE ADVISED TO KEEP PT SITTING UPRIGHT AND MONITOR SITE. PT TO RCV DIALYSIS TOMORROW AM. PT SCHEDULED T/GET HEPARIN 5000 UNITS; CALL TO SOFTWARE INTEGRATION DEVELOPER/DR CHACON--ORDER TO HOLD PM DOSE OF HEPARIN.
--- NOTE | 2022-12-20 05:23 | NUR ---
AUTOMATION AND CONTROLS INSTRUCTOR SUMMARY PT RETURN TO ROOM APOX 1930 FROM LEFT CHEST WALL PERMACATH PLACEMENT PROCEDURE. SEE NURSE NOTE. PT A/OX4. PLEASANT AND COOPERATIVE. CONT TO MONITOR PERMA CATH SITE FOR BLEEDING. (SITE WNL). PT SAT UP IN CHAIR FOR SEVERAL HOURS IN THE EVENING; SLEPT IN RECLINER T/O THE NIGHT. TOLERATED FOOD INTAKE WELL. PLAN TO HAVE DIALYSIS 12/20/22. PT ORIENTED TO ROOM. CALL LIGHT ACCESSIBLE. WILL CONT T/MONITOR.
[2022-12-20 06:03] LABS: BASOPHILS ABSOLUTE AUTO 0.05 K/mm3 (0.00-0.23); BASOPHILS PERCENT AUTO 1 % (0-2); EOSINOPHILS ABSOLUTE AUTO 0.09 K/mm3 (0.00-0.68); EOSINOPHILS PERCENT AUTO 1 % (0-6); Hematocrit 28.5 % (37.0-53.0); IMMATURE GRAN ABSOLUTE AUTO 0.05 K/mm3 (0.00-0.10); IMMATURE GRAN PERCENT AUTO 1 % (0-1); LYMPHOCYTES PERCENT AUTO 10 % (21-46); MONOCYTES ABSOLUTE AUTO 0.46 K/mm3 (0.16-1.47); MONOCYTES PERCENT AUTO 6 % (4-13); Mean Corpuscular HGB 21.2 pg (26.0-34.0); Mean Corpuscular HGB Conc 31.6 g/dL (31.5-36.5); Mean Corpuscular Volume 67 fL (80-100); NEUTROPHILS ABSOLUTE AUTO 6.41 K/mm3 (1.96-9.15); NEUTROPHILS PERCENT AUTO 82 % (41-73); Platelet Count 187 K/mm3 (150-400); RDW Coefficient Variation 17.6 % (11.7-14.2); RDW Standard Deviation 40.3 fL (35.1-46.3); Red Blood Cell Count 4.24 M/mm3 (4.30-5.90); White Blood Cell Count 7.86 K/mm3 (4.00-11.30)
[2022-12-20 06:25] LABS: Bun/Creatinine Ratio 16.2 (12.0-20.0); Calcium, Blood 9.2 mg/dL (8.5-10.1); Creatinine, Blood 5.85 mg/dL (0.60-1.20); Potassium, Blood 5.2 mmol/L (3.5-5.5)
--- NOTE | 2022-12-20 08:27 | NUR ---
Pt sitting up in chair, a/ox3, pleasant and cooperative with care, follows commands well, reports 5/10 discomfort at new [facility] site, lungs are clear dim in bases, currently on r/a, no cough noted this am, he reports it has slowed down, hrr, tele in place running sb to sr per monitor, see strip, 1-2+ edema noted to b/l ankles, ppp+1, cap refill <3sec, vs stable, will hold metoprolol for dialysis, piv site is clear and patent, s.l. btx4, abd flat soft nontender, voids without diff via urinal, clear dahlia urine, skin c/w/d, maew, up indep in room, willard call light in reach.
[2022-12-20 12:24] LABS: Vancomycin, Random 14.3 ug/mL
[2022-12-20] MEDS ORDERED: DOCU100 PO (12:43)
--- NOTE | 2022-12-20 12:45 | NUR ---
Pt has had dialysis, and is being discharged to home, went over his discharge instructions, he verbalized understanding, iv removed intact, left via wheelchair with wall his belongings. no new meds to fax to pharmacy.
== END 2022-12-20 13:11 | disposition home or self-care (01) | DRG 314 ==
LOC: ER 11:23 → MEDS 14:54
PROVIDERS: Internal Medicine; Internal Medicine Nephrology; Physician Assistant; ADMIT Family Medicine
PROC: 0JH63XZ Insertion of Tunneled Vascular Access Device into Chest Subcutaneous Tissue and Fascia, Percutaneous Approach (ICD-10-PCS; principal; 2022-12-19)
PROC: 02HV33Z Insertion of Infusion Device into Superior Vena Cava, Percutaneous Approach (ICD-10-PCS; 2022-12-19)
PROC: B518ZZA Fluoroscopy of Superior Vena Cava, Guidance (ICD-10-PCS; 2022-12-19)
PROC: 5A1D70Z Performance of Urinary Filtration, Intermittent, Less than 6 Hours Per Day (ICD-10-PCS; 2022-12-19)
DX: T80.211A Bloodstream infection due to central venous catheter, initial encounter (principal); N18.6 End stage renal disease; I13.2 Hypertensive heart and chronic kidney disease with heart failure and with stage 5 chronic kidney disease, or end stage renal disease; I50.22 Chronic systolic (congestive) heart failure; E11.22 Type 2 diabetes mellitus with diabetic chronic kidney disease; I25.10 Atherosclerotic heart disease of native coronary artery without angina pectoris; E78.5 Hyperlipidemia, unspecified; B95.61 Methicillin susceptible Staphylococcus aureus infection as the cause of diseases classified elsewhere; D63.1 Anemia in chronic kidney disease; I25.2 Old myocardial infarction; Z87.11 Personal history of peptic ulcer disease; Z95.1 Presence of aortocoronary bypass graft; Z88.6 Allergy status to analgesic agent; Z79.4 Long term (current) use of insulin; Z79.02 Long term (current) use of antithrombotics/antiplatelets; Z79.82 Long term (current) use of aspirin; Z79.899 Other long term (current) drug therapy; Y83.1 Surgical operation with implant of artificial internal device as the cause of abnormal reaction of the patient, or of later complication, without mention of misadventure at the time of the procedure
CPT/HCPCS: 36415; 36558; 71045; 71046; 76937; 77001; 80048; 80053; 80069; 80202; 82947; 83605; 83735; 85025; 87040; 87070; 87077; 87186; 93005; 93010; 93308; 93312; 93321; 93325; 96365; 99152; 99153; 99284-25; A9270; C1750; C1769; C1894; J0696; J1644; J1815; J1940; J2250; J3010; J3370; J7030; J7040; J7050

== ENCOUNTER 2022-12-22 13:00 | Emergency (ER) | payer OTHER ==
[~2022-12-22] VITALS: Ht 182.9 cm; Wt 95.2 kg
[~2022-12-22 13:00] MED LIST changes: +DOCU100 PO
== END 2022-12-22 17:47 | disposition home or self-care (01) ==
LOC: ER 13:00
DX: T82.838A Hemorrhage due to vascular prosthetic devices, implants and grafts, initial encounter (principal); E11.9 Type 2 diabetes mellitus without complications; I10 Essential (primary) hypertension; I25.2 Old myocardial infarction; I25.10 Atherosclerotic heart disease of native coronary artery without angina pectoris; Y84.6 Urinary catheterization as the cause of abnormal reaction of the patient, or of later complication, without mention of misadventure at the time of the procedure; Z79.899 Other long term (current) drug therapy; Z79.4 Long term (current) use of insulin; Z79.82 Long term (current) use of aspirin; Z88.5 Allergy status to narcotic agent; Z95.5 Presence of coronary angioplasty implant and graft; Z95.1 Presence of aortocoronary bypass graft
CPT/HCPCS: 71045

== ENCOUNTER 2023-01-09 17:55 | Emergency (ER) | payer OTHER ==
[~2023-01-09] VITALS: Ht 182.9 cm; Wt 95.2 kg
[2023-01-09 18:53] LABS: BASOPHILS ABSOLUTE AUTO 0.02 K/mm3 (0.00-0.23); BASOPHILS PERCENT AUTO 0 % (0-2); EOSINOPHILS ABSOLUTE AUTO 0.15 K/mm3 (0.00-0.68); EOSINOPHILS PERCENT AUTO 3 % (0-6); Hemoglobin 9.4 g/dL (13.5-17.5); IMMATURE GRAN ABSOLUTE AUTO 0.01 K/mm3 (0.00-0.10); IMMATURE GRAN PERCENT AUTO 0 % (0-1); LYMPHOCYTES ABSOLUTE AUTO 0.92 K/mm3 (0.84-5.20); LYMPHOCYTES PERCENT AUTO 17 % (21-46); MONOCYTES PERCENT AUTO 8 % (4-13); Mean Corpuscular HGB 22.1 pg (26.0-34.0); Mean Corpuscular HGB Conc 32.4 g/dL (31.5-36.5); Mean Corpuscular Volume 68 fL (80-100); NEUTROPHILS ABSOLUTE AUTO 3.79 K/mm3 (1.96-9.15); NEUTROPHILS PERCENT AUTO 72 % (41-73); NRBC ABSOLUTE 0.02 K/mm3 (0.00-0.02); NRBC Auto 0.4 /100 WBC (0.0-0.2); Platelet Count 104 K/mm3 (150-400); RDW Coefficient Variation 18.6 % (11.7-14.2); RDW Standard Deviation 42.5 fL (35.1-46.3); Red Blood Cell Count 4.26 M/mm3 (4.30-5.90); White Blood Cell Count 5.29 K/mm3 (4.00-11.30)
[2023-01-09 19:06] LABS: Albumin/Globulin Ratio 1.2 (0.8-1.8); Bilirubin, Total 4.7 mg/dL (0.1-1.0); Bun/Creatinine Ratio 10.8 (12.0-20.0); Calcium, Blood 9.2 mg/dL (8.5-10.1); Creatinine, Blood 4.54 mg/dL (0.60-1.20); Globulin, Blood 3.4 g/dL (2.2-4.0); Potassium, Blood 4.2 mmol/L (3.5-5.5); Total Protein, Blood 7.4 g/dL (6.4-8.2)
== END 2023-01-09 22:04 | disposition home or self-care (01) ==
LOC: ER 17:55
PROVIDERS: Physician Assistant
DX: K80.50 Calculus of bile duct without cholangitis or cholecystitis without obstruction (principal); E11.9 Type 2 diabetes mellitus without complications; E78.5 Hyperlipidemia, unspecified; I10 Essential (primary) hypertension; I25.2 Old myocardial infarction; I25.10 Atherosclerotic heart disease of native coronary artery without angina pectoris; Z95.5 Presence of coronary angioplasty implant and graft; Z95.1 Presence of aortocoronary bypass graft; Z79.899 Other long term (current) drug therapy; Z79.4 Long term (current) use of insulin; Z79.82 Long term (current) use of aspirin; Z88.5 Allergy status to narcotic agent
CPT/HCPCS: 36415; 76705; 80053; 83690; 85025

== ENCOUNTER 2023-01-17 07:48 | Day surgery (SDC) | payer OTHER ==
[~2023-01-17] VITALS: Ht 182.9 cm; Wt 91.8 kg
[~2023-01-17 07:48] MED LIST changes: +BUME2; +INSULIN GL100 UNIT/3 SC; +PANTOPRAZOLE SO PO; +TAMS.4ER PO
--- NOTE | 2023-01-17 08:34 | NUR ---
01/17/23 0834 Chiqui Fonseca TETRACAINE PLACED IN RIGHT EYE 0818 PLEDGET PLACED IN RIGHT EYE 0821
== END 2023-01-17 10:05 | disposition home or self-care (01) ==
LOC: ORSCSDS 07:48
PROVIDERS: Ophthalmology
PROC: 08RJ3JZ Replacement of Right Lens with Synthetic Substitute, Percutaneous Approach (ICD-10-PCS; principal; 2023-01-17 09:00)
DX: E11.36 Type 2 diabetes mellitus with diabetic cataract (principal); H25.11 Age-related nuclear cataract, right eye; H21.81 Floppy iris syndrome; E11.22 Type 2 diabetes mellitus with diabetic chronic kidney disease; I13.2 Hypertensive heart and chronic kidney disease with heart failure and with stage 5 chronic kidney disease, or end stage renal disease; I50.9 Heart failure, unspecified; N18.6 End stage renal disease; Z99.2 Dependence on renal dialysis; I25.10 Atherosclerotic heart disease of native coronary artery without angina pectoris; Z79.82 Long term (current) use of aspirin; Z79.02 Long term (current) use of antithrombotics/antiplatelets; Z79.4 Long term (current) use of insulin; Z79.899 Other long term (current) drug therapy; Z87.891 Personal history of nicotine dependence
CPT/HCPCS: 82947; J2001; J2250; J3301; J7040; V2632

== ENCOUNTER 2023-10-22 06:12 | Day surgery (SDC) | payer OTHER ==
[2023-10-22] VITALS (21 sets, daily range): BP systolic 106–143; BP diastolic 61–77
[~2023-10-22] VITALS: Ht 177.8 cm; Wt 95.0 kg
[2023-10-22] MEDS ORDERED: BUME1 PO (06:31)
--- NOTE | 2023-10-22 07:27 | NUR ---
AVOIDED RIGHT ARM FOR BP AND VENIPUNCTURE DUE TO FISTULA. PATIENT REPORTED DRINIING APPROX 4 OZ OF "SUGAR WATER" THIS AM AT 0500. REPORTED THIS TO ANESTHESIOLOGIST, DR RAMEY. Patient States Post-Procedure ride home has been arranged with his daughter.
--- NOTE | 2023-10-22 11:59 | NUR ---
PT ARRIVED TO 227 FROM PACU TRANSFERRED FROM [facility] TO [facility]. PT BECAME NAUSEATED AND HAD SMALL AMOUNT EMESIS AFTER TRANSFERRING AND ROLLING TO REMOVE EXCESS LINENS. PT HAD REC'D ZOFRAN JUST PRIOR TO ARRIVING TO UNIT. IV FLUIS INFUSING PER ORDERS. LAP INCISIONS SECURED WITH STERI STRIPS. SMALL AMOUNT OOZING NOTED TO UMBILICAL INCISION. ALINE COMPRESSED AND DRAINING SS FLUID. CALL LIGHT IN REACH. PT EDUCATED ON USE OF LIGHT AND FALL PRECAUTIONS. RESTING WITH EYES CLOSED.
--- NOTE | 2023-10-22 14:12 | NUR ---
ALINE DRAIN LEAKING FROM INSERTION SITE. HAD SATURATED DRAIN SPONGES, GOWN AND ZAYAS PAD. CLEANED SITE AND PLACED NEW DRAIN SPONGES/TAPE. ALINE DRAIN COMPRESSED AND DRAINING SS FLUID. PT RESTING IN BED, DENIES ANY NEEDS AT THIS TIME. CALL LIGHT IN REACH.
[2023-10-22 14:50] LABS: BASOPHILS ABSOLUTE AUTO 0.02 K/mm3 (0.00-0.23); BASOPHILS PERCENT AUTO 0 % (0-2); EOSINOPHILS ABSOLUTE AUTO 0.02 K/mm3 (0.00-0.68); EOSINOPHILS PERCENT AUTO 0 % (0-6); Hematocrit 31.6 % (37.0-53.0); Hemoglobin 10.1 g/dL (13.5-17.5); IMMATURE GRAN ABSOLUTE AUTO 0.04 K/mm3 (0.00-0.10); IMMATURE GRAN PERCENT AUTO 0 % (0-1); LYMPHOCYTES ABSOLUTE AUTO 0.41 K/mm3 (0.84-5.20); LYMPHOCYTES PERCENT AUTO 4 % (21-46); MONOCYTES ABSOLUTE AUTO 0.14 K/mm3 (0.16-1.47); MONOCYTES PERCENT AUTO 2 % (4-13); Mean Corpuscular HGB 21.1 pg (26.0-34.0); Mean Corpuscular Volume 66 fL (80-100); NEUTROPHILS ABSOLUTE AUTO 8.72 K/mm3 (1.96-9.15); NEUTROPHILS PERCENT AUTO 93 % (41-73); Platelet Count 104 K/mm3 (150-400); RDW Coefficient Variation 19.6 % (11.7-14.2); RDW Standard Deviation 43.8 fL (35.1-46.3); Red Blood Cell Count 4.78 M/mm3 (4.30-5.90); White Blood Cell Count 9.35 K/mm3 (4.00-11.30)
--- NOTE | 2023-10-22 17:17 | NUR ---
SUMMARY NO ACUTE CHANGES SINCE ARRIVING TO FLOOR FROM PACU. PT REPORTS ABDOMEN FEELS "SORE", DECLINED OFFER FOR PAIN MEDS. PT WAS NAUSEATED AND HAD SMALL AMOUNT VOMITING UPON ARRIVAL TO UNIT BUT REPORTS HAS RESOLVED. PT HAD LARGE AMOUNT OF LEAKING OF SS FLUID FROM ALINE INSERTION SITE THIS AFTERNOON. CHANGED DRAIN SPONGES, GOWN, ZAYAS AND BLANKETS. NOTIFIED DR SANCHEZ. EMPTIED 50 ML SS FLUID FROM ALINE BULB THIS EVENING. VSS. CALL LIGHT IN REACH.
[2023-10-23] VITALS (16 sets, daily range): BP systolic 114–147; BP diastolic 62–81
--- NOTE | 2023-10-23 04:53 | NUR ---
SHIFT SUMMARY POD 1 LAP JANE PT ABLE TO REST T/O NIGHT. PAIN MANAGED PER EMAR. LAP SITES X3 WITH STERI-STRIPS, C/D/I. ALINE DRAIN IN RLQ. DRAINING SEROSANGIENOUS FLUID. DRESSING CHANGED AT SHIFT CHANGE, STILL C/D/I.PT REPORTS PASSING VERY LITTLE GAS. VSS. SBA TO THE BATHROOM. NO OTHER CONCERNS AT THIS TIME. CALL LIGHT WITHIN REACH.
[2023-10-23 05:35] LABS: BASOPHILS ABSOLUTE AUTO 0.01 K/mm3 (0.00-0.23); BASOPHILS PERCENT AUTO 0 % (0-2); EOSINOPHILS PERCENT AUTO 0 % (0-6); Hematocrit 29.2 % (37.0-53.0); Hemoglobin 9.3 g/dL (13.5-17.5); IMMATURE GRAN ABSOLUTE AUTO 0.02 K/mm3 (0.00-0.10); IMMATURE GRAN PERCENT AUTO 0 % (0-1); LYMPHOCYTES ABSOLUTE AUTO 0.57 K/mm3 (0.84-5.20); LYMPHOCYTES PERCENT AUTO 6 % (21-46); MONOCYTES ABSOLUTE AUTO 0.39 K/mm3 (0.16-1.47); MONOCYTES PERCENT AUTO 4 % (4-13); Mean Corpuscular HGB 20.9 pg (26.0-34.0); Mean Corpuscular HGB Conc 31.8 g/dL (31.5-36.5); Mean Corpuscular Volume 66 fL (80-100); NEUTROPHILS ABSOLUTE AUTO 8.85 K/mm3 (1.96-9.15); NEUTROPHILS PERCENT AUTO 90 % (41-73); Platelet Count 105 K/mm3 (150-400); RDW Standard Deviation 42.7 fL (35.1-46.3); Red Blood Cell Count 4.45 M/mm3 (4.30-5.90); White Blood Cell Count 9.84 K/mm3 (4.00-11.30)
[2023-10-23 06:09] LABS: Bun/Creatinine Ratio 12.1 (12.0-20.0); Calcium, Blood 8.6 mg/dL (8.5-10.1); Creatinine, Blood 5.29 mg/dL (0.60-1.20); Potassium, Blood 5.2 mmol/L (3.5-5.5)
--- NOTE | 2023-10-23 10:52 | NUR ---
PATIENT BACK FROM DIALYSIS.
[2023-10-23] MEDS ORDERED: Norco 5-325 Ta1 EACH PO (14:25)
--- NOTE | 2023-10-23 16:21 | NUR ---
PATIENT DISCHARGED @1500, IV TAKEN OUT NO COMPLICATIONS, SIGNED AND ACKNOWLEDGED ALL INSTRUCTIONS. LEAVES VIA PRIVATE VEHICLE.
== END 2023-10-23 15:02 | disposition home or self-care (01) ==
LOC: ORSCMMR 06:12 → SURS 06:12 → ORD 07:30 → ORSCMMR 07:30 → SURS 11:25 → ORSCMMR 10-23 15:02
PROVIDERS: Surgery
PROC: BF031ZZ Plain Radiography of Gallbladder and Bile Ducts using Low Osmolar Contrast (ICD-10-PCS; principal; 2023-10-22 07:30)
PROC: 0FT44ZZ Resection of Gallbladder, Percutaneous Endoscopic Approach (ICD-10-PCS; principal; 2023-10-22 07:30)
DX: K80.20 Calculus of gallbladder without cholecystitis without obstruction (principal); I25.10 Atherosclerotic heart disease of native coronary artery without angina pectoris; E11.40 Type 2 diabetes mellitus with diabetic neuropathy, unspecified; N18.6 End stage renal disease; E78.5 Hyperlipidemia, unspecified; K21.9 Gastro-esophageal reflux disease without esophagitis; N40.0 Benign prostatic hyperplasia without lower urinary tract symptoms; Z99.2 Dependence on renal dialysis; I50.9 Heart failure, unspecified; I10 Essential (primary) hypertension; I25.2 Old myocardial infarction; Z79.899 Other long term (current) drug therapy; Z79.02 Long term (current) use of antithrombotics/antiplatelets; Z79.4 Long term (current) use of insulin
CPT/HCPCS: 36415; 51701; 80048; 82947; 85025; 88304; A9270; G0257; J0690; J1100; J1815; J2250; J2405; J2704; J3010; J7030; J7060

== ENCOUNTER 2024-05-16 14:04 | Observation (INO) | payer OTHER, MEDICARE ==
[~2024-05-16] VITALS: Ht 182.9 cm; Wt 93.9 kg
[~2024-05-16 14:04] MED LIST changes: +Norco 5-325 Ta1 EACH PO
[2024-05-16 14:38] LABS: BASOPHILS ABSOLUTE AUTO 0.03 K/mm3 (0.00-0.23); BASOPHILS PERCENT AUTO 1 % (0-2); EOSINOPHILS ABSOLUTE AUTO 0.07 K/mm3 (0.00-0.68); EOSINOPHILS PERCENT AUTO 1 % (0-6); Hematocrit 30.2 % (37.0-53.0); Hemoglobin 9.6 g/dL (13.5-17.5); IMMATURE GRAN ABSOLUTE AUTO 0.01 K/mm3 (0.00-0.10); IMMATURE GRAN PERCENT AUTO 0 % (0-1); LYMPHOCYTES ABSOLUTE AUTO 0.87 K/mm3 (0.84-5.20); LYMPHOCYTES PERCENT AUTO 14 % (21-46); MONOCYTES ABSOLUTE AUTO 0.48 K/mm3 (0.16-1.47); MONOCYTES PERCENT AUTO 8 % (4-13); Mean Corpuscular HGB 21.2 pg (26.0-34.0); Mean Corpuscular HGB Conc 31.8 g/dL (31.5-36.5); Mean Corpuscular Volume 67 fL (80-100); NEUTROPHILS PERCENT AUTO 76 % (41-73); NRBC ABSOLUTE 0.02 K/mm3 (0.00-0.02); NRBC Auto 0.3 /100 WBC (0.0-0.2); Platelet Count 104 K/mm3 (150-400); RDW Standard Deviation 40.6 fL (35.1-46.3); Red Blood Cell Count 4.52 M/mm3 (4.30-5.90); White Blood Cell Count 6.16 K/mm3 (4.00-11.30)
[2024-05-16 14:48] LABS: Albumin, Blood 3.9 g/dL (3.4-5.0); Albumin/Globulin Ratio 1.2 (0.8-1.8); Bilirubin, Total 5.3 mg/dL (0.1-1.0); Calcium, Blood 9.4 mg/dL (8.5-10.1); Creatinine, Blood 5.59 mg/dL (0.60-1.20); Globulin, Blood 3.3 g/dL (2.2-4.0); Magnesium, Blood 1.6 mg/dL (1.6-2.4); Potassium, Blood 4.3 mmol/L (3.5-5.5); Total Protein, Blood 7.2 g/dL (6.4-8.2)
[2024-05-16] MEDS ORDERED: Aspirin 325 MG Tab PO ONE (15:35)
[2024-05-16 16:23] LABS: Influenza A, PCR NEGATIVE (NEGATIVE); Influenza B, PCR NEGATIVE (NEGATIVE); Resp Syncytial Virus, PCR NEGATIVE (NEGATIVE); SARS-Cov-2 (COVID-19) PCR, MMC NEGATIVE (NEGATIVE)
[2024-05-16] MEDS ORDERED: Furosemide 10 MG/ML 4ML Vial IV ONE (16:25)
[2024-05-16] MEDS ORDERED: Ondansetron HCl 2 MG / ML 2ML Vial IV PRN (17:40)
[2024-05-16] MEDS ORDERED: Enoxaparin 30 MG/0.3 ML SYR SC SCH (18:00)
[2024-05-16 18:06] VITALS: BP 114/67
[2024-05-16 18:25] VITALS: BP 120/66
--- NOTE | 2024-05-16 18:37 | NUR ---
SUMMARY PT ADMITTED TO PCU 9 AT 1800 FROM ER. PT IS A/O X4, ABLE TO AMBULATE SELF TO BED AND TO BATHROOM. PT HAS DIALYSIS FISTULA TO [facility], LAST DIALYSIS YESTERDAY. DAUGHTER ACCOMPANIES PT. DR. OSORIO CONSULTED. NO SIGN OF DISTRESS.
[2024-05-16 19:52] VITALS: BP 114/74
[2024-05-16 23:31] VITALS: BP 124/68
[2024-05-17] VITALS (14 sets, daily range): BP systolic 122–151; BP diastolic 62–100
[2024-05-17] MEDS ORDERED: DiphenhydrAMINE HCL 25 MG Cap PO ONE (01:50)
[2024-05-17 02:25] LABS: BASOPHILS ABSOLUTE AUTO 0.03 K/mm3 (0.00-0.23); BASOPHILS PERCENT AUTO 1 % (0-2); EOSINOPHILS ABSOLUTE AUTO 0.09 K/mm3 (0.00-0.68); EOSINOPHILS PERCENT AUTO 1 % (0-6); Hematocrit 32.6 % (37.0-53.0); Hemoglobin 10.1 g/dL (13.5-17.5); IMMATURE GRAN ABSOLUTE AUTO 0.02 K/mm3 (0.00-0.10); IMMATURE GRAN PERCENT AUTO 0 % (0-1); LYMPHOCYTES ABSOLUTE AUTO 1.08 K/mm3 (0.84-5.20); LYMPHOCYTES PERCENT AUTO 17 % (21-46); MONOCYTES ABSOLUTE AUTO 0.47 K/mm3 (0.16-1.47); MONOCYTES PERCENT AUTO 7 % (4-13); Mean Corpuscular Volume 68 fL (80-100); NEUTROPHILS ABSOLUTE AUTO 4.84 K/mm3 (1.96-9.15); NEUTROPHILS PERCENT AUTO 74 % (41-73); NRBC ABSOLUTE 0.03 K/mm3 (0.00-0.02); NRBC Auto 0.5 /100 WBC (0.0-0.2); Platelet Count 103 K/mm3 (150-400); RDW Coefficient Variation 18.6 % (11.7-14.2); RDW Standard Deviation 42.1 fL (35.1-46.3); White Blood Cell Count 6.53 K/mm3 (4.00-11.30)
[2024-05-17 02:31] LABS: Albumin/Globulin Ratio 1.2 (0.8-1.8); Bilirubin, Total 5.3 mg/dL (0.1-1.0); Bun/Creatinine Ratio 10.6 (12.0-20.0); Calcium, Blood 9.5 mg/dL (8.5-10.1); Creatinine, Blood 5.93 mg/dL (0.60-1.20); Globulin, Blood 3.4 g/dL (2.2-4.0); Potassium, Blood 4.4 mmol/L (3.5-5.5); Total Protein, Blood 7.4 g/dL (6.4-8.2)
--- NOTE | 2024-05-17 04:21 | NUR ---
SHIFT SUMMARY. SHIFT HAS BEEN UNREMARKABLE. PT IS AOX4, PLEASANT, COOPERATIVE WITH CARE, CALLS APPROPRIATELY, ABLE TO MAKE NEEDS KNOWN. PT HAS BEEN INDEPENDENT WITHIN ROOM AND HAS CALLED APPROPRIATELY FOR ASSISTANCE. PT WAS AT FIRST URINATING WITHOUT NOTIFYING RN TO MONITOR I+Os. EDUCATED ON INDICATION FOR TRACKING OF I+Os. PT HAS CONTINUED TO DENY PAIN THROUGHOUT SHIFT. PT HAS NOT BEEN ABLE TO SLEEP WELL, EARLY THIS MORNING COMPLAINED OF "CRAMPS OR SPASMS" IN LEGS PREVENTING HIM FROM BEING ABLE TO SLEEP. OFFERED PAIN MEDICATION WHICH PT DENIED IT WASN'T REALLY PAINFUL. SPOKE WITH HOSPITALIST DR. KNOWLES WHO ORDERED BENADRYL AND SINCE ADMINISTRATION PT HAS BEEN ABLE TO SLEEP WELL. VITALS STABLE. TELE ON THROUGHOUT SHIFT WITH NO ACUTE CHANGES OR EVENTS. BED LOCKED IN LOWEST POSITION. CALL LIGHT LEFT WITHIN REACH. CONTINUING TO MONITOR.
[2024-05-17] MEDS ORDERED: Furosemide 10 MG/ML 4ML Vial IV SCH (09:00)
--- NOTE | 2024-05-17 09:19 | NUR ---
AM NOTES; PT DENIES CHEST PAIN/PRESSURE THIS MORNING. VITALS HAS BEEN STABLE. NO NASUEA/DIZZINES OR PRE SYNCOPAL EPISODES REPORTED. PT SCHEDULED FOR DIALYSIS THIS MORNING PT TAKEN VIA WHEELCHAIR. TO HOLD LASIX DOSE THIS MORNING PER HOUSECALLS NURSE. PT ATE BREAKFAST WITH NO ISSUES. AMBULATING WITH ASSIST PT CALLS APPROPRIATELY. ALERT AND ORIENTED X4, ABLE TO MAKE NEEDS KNOWN, WILL CONTINUE TO MONITOR
--- NOTE | 2024-05-17 09:45 | NUR ---
DIALYSIS PT C/O HAVING AN IV IN HIS LOWER FISTULA ARM. HE SAID THEY PUT IT IN WHILE HE WAS IN THE AMBULANCE. REPORTED TO HIS RN AND PCU CHARGE NURSE. WHEN HE CAME TO THE DIALYSIS ROOM, IT WAS GONE. A NEW IV WAS IN HIS LEFT ARM.
[2024-05-17] MEDS ORDERED: LOSA25 PO (12:09)
[2024-05-17] MEDS ORDERED: TAMS.4ER PO (12:10)
[2024-05-17] MEDS ORDERED: MULVITA PO (12:12)
[2024-05-17] MEDS ORDERED: INSULANI SC (12:13)
--- NOTE | 2024-05-17 13:05 | NUR ---
DISCHARGE SUMMARY: Pt verbalized understanding of all written and verbal discharge instructions provided by BN. PIV dc'd w/cath intact. No s/s of acute distress, will dc via w/c once pt is dressed.
== END 2024-05-17 13:00 | disposition home or self-care (01) ==
LOC: ER 14:04 → PCU 14:05
PROVIDERS: Student in an Organized Health Care Education/Training Program; ADMIT Internal Medicine
DX: I13.2 Hypertensive heart and chronic kidney disease with heart failure and with stage 5 chronic kidney disease, or end stage renal disease (principal); E11.22 Type 2 diabetes mellitus with diabetic chronic kidney disease; N18.6 End stage renal disease; I50.9 Heart failure, unspecified; I25.10 Atherosclerotic heart disease of native coronary artery without angina pectoris; E78.5 Hyperlipidemia, unspecified; R79.89 Other specified abnormal findings of blood chemistry; D64.9 Anemia, unspecified; Z79.4 Long term (current) use of insulin; Z79.82 Long term (current) use of aspirin; Z79.899 Other long term (current) drug therapy; Z99.2 Dependence on renal dialysis
CPT/HCPCS: 0241U; 36415; 71046; 76705; 80053; 82947; 83735; 83880; 84484; 85025; 93005; 93010; 96372; 96374; 99285-25; A9270; G0257; G0378; J1650; J1940

== ENCOUNTER 2024-05-25 07:41 | Observation (INO) | payer OTHER ==
[~2024-05-25] VITALS: Ht 182.9 cm; Wt 90.0 kg
[~2024-05-25 07:41] MED LIST changes: +INSULANI SC; +MULVITA PO
[2024-05-25 09:43] LABS: Influenza A, PCR NEGATIVE (NEGATIVE); Influenza B, PCR NEGATIVE (NEGATIVE); Resp Syncytial Virus, PCR NEGATIVE (NEGATIVE); SARS-Cov-2 (COVID-19) PCR, MMC NEGATIVE (NEGATIVE)
[2024-05-25] MEDS ORDERED: TAMS.4ER PO (09:59)
[2024-05-25] MEDS ORDERED: BASAGLAR K100 UNIT/8 SC (10:00)
[2024-05-25] MEDS ORDERED: Ondansetron HCl 2 MG / ML 2ML Vial IV ONE (10:05)
[2024-05-25] MEDS ORDERED: NS 500 ML IV SCH (10:05)
[2024-05-25] MEDS ORDERED: Acetaminophen 500 MG Tab PO ONE (10:05)
[2024-05-25 10:27] LABS: BASOPHILS ABSOLUTE AUTO 0.01 K/mm3 (0.00-0.23); BASOPHILS PERCENT AUTO 0 % (0-2); EOSINOPHILS ABSOLUTE AUTO 0.08 K/mm3 (0.00-0.68); EOSINOPHILS PERCENT AUTO 2 % (0-6); Hematocrit 34.8 % (37.0-53.0); Hemoglobin 11.2 g/dL (13.5-17.5); IMMATURE GRAN ABSOLUTE AUTO 0.02 K/mm3 (0.00-0.10); IMMATURE GRAN PERCENT AUTO 1 % (0-1); LYMPHOCYTES ABSOLUTE AUTO 0.48 K/mm3 (0.84-5.20); LYMPHOCYTES PERCENT AUTO 13 % (21-46); MONOCYTES ABSOLUTE AUTO 0.45 K/mm3 (0.16-1.47); MONOCYTES PERCENT AUTO 13 % (4-13); Mean Corpuscular HGB 21.3 pg (26.0-34.0); Mean Corpuscular HGB Conc 32.2 g/dL (31.5-36.5); Mean Corpuscular Volume 66 fL (80-100); NEUTROPHILS ABSOLUTE AUTO 2.56 K/mm3 (1.96-9.15); NEUTROPHILS PERCENT AUTO 71 % (41-73); Platelet Count 100 K/mm3 (150-400); RDW Coefficient Variation 18.3 % (11.7-14.2); RDW Standard Deviation 40.8 fL (35.1-46.3); Red Blood Cell Count 5.25 M/mm3 (4.30-5.90)
[2024-05-25 10:44] LABS: Albumin, Blood 4.4 g/dL (3.4-5.0); Albumin/Globulin Ratio 1.1 (0.8-1.8); Bilirubin, Total 4.2 mg/dL (0.1-1.0); Calcium, Blood 9.6 mg/dL (8.5-10.1); Creatinine, Blood 7.33 mg/dL (0.60-1.20); Potassium, Blood 3.9 mmol/L (3.5-5.5); Total Protein, Blood 8.4 g/dL (6.4-8.2)
[2024-05-25 12:34] LABS: Source, Urine Clean Catch
[2024-05-25 12:52] LABS: Bilirubin, Urine Neg (Neg); Blood, Urine 2+ (Neg); Glucose Qualitative, Urine Neg (Neg); Ketones, Urine Neg (Neg); Leukocyte Esterase, Urine Neg (Neg); Nitrite, Urine Neg (Neg); Protein, Urine 3+ (Neg); Specific Gravity, Urine 1.005 (1.003-1.022); Urobilinogen, Urine NORM (Normal)
[2024-05-25] MEDS ORDERED: Dextrose 50% 50 ML Syringe IV ONE (13:00)
[2024-05-25 13:06] LABS: Appearance, Urine Clear (Clear); Color, Urine Pale Yellow (P-Yellow)
[2024-05-25 13:07] LABS: Bacteria Rare /hpf; Squamous Epithelial Cells Rare /hpf (Few); White Blood Cells, Urine 0-2 /hpf (0-5)
[2024-05-25] MEDS ORDERED: Ipratropium/Albuterol SulF 2.5-0.5MG/3 ML Amp INH ONE (13:25)
[2024-05-25] MEDS ORDERED: Ondansetron 4 MG TAB PO PRN (13:35)
[2024-05-25] MEDS ORDERED: Acetaminophen 325 MG TABLET PO PRN (13:35)
[2024-05-25 17:28] VITALS: BP 109/54
[2024-05-25] MEDS ORDERED: ASPI81CH PO (17:49)
--- NOTE | 2024-05-25 18:41 | NUR ---
ADMISSION NOTE PATIENT ARRIVED TO UNIT IN STABLE CONDITION. A/OX4, WAS ABLE TO ANSWER ADMISSION QUESTIONS. DAUGHTER SOPHY AT BEDSIDE. DINNER PROVIDED. VITAL SIGNS STABLE, PATIENT ON 1L OXYGEN VIA NASAL CANNULA. NO OTHER CONCERNS AT THIS TIME.
[2024-05-25] MEDS ORDERED: Insulin Human Lispro 100 Units/ML 3ML Syringe SC SCH (21:00)
[2024-05-25] MEDS ORDERED: Calcium Acetate 667 MG Gel Cap PO SCH (21:05)
[2024-05-26] VITALS (14 sets, daily range): BP systolic 86–130; BP diastolic 49–93
--- NOTE | 2024-05-26 05:16 | NUR ---
SHIFT SUMMARY: TYRONE IS A&OX4. VSS, TMAX OF 101.3, MEDICATED PER MAR. PT IS INDEPENDENT IN THE ROOM, FISTULA TO RIGHT ARM WITH POSITIVE THRILL AND BRUIT. PLAN FOR DIALYSIS TODAY, CORRECTIONAL AGENCY DIRECTOR CONSULTED. PT IS TOLERATING PO INTAKE WELL, IV TO LEFT HAND AND ARM PATENT, CONTINENT OF BLADDER AND BOWEL. HE IS LYING IN BED WITH THE CALL LIGHT IN REACH. WILL GIVE REPORT TO DAY SHIFT RN.
[2024-05-26 05:42] LABS: BASOPHILS ABSOLUTE AUTO 0.02 K/mm3 (0.00-0.23); BASOPHILS PERCENT AUTO 1 % (0-2); EOSINOPHILS ABSOLUTE AUTO 0.05 K/mm3 (0.00-0.68); EOSINOPHILS PERCENT AUTO 1 % (0-6); Hematocrit 29.2 % (37.0-53.0); Hemoglobin 9.6 g/dL (13.5-17.5); Mean Corpuscular HGB 21.4 pg (26.0-34.0); Mean Corpuscular HGB Conc 32.9 g/dL (31.5-36.5); Mean Corpuscular Volume 65 fL (80-100); Platelet Count 89 K/mm3 (150-400); RDW Coefficient Variation 17.8 % (11.7-14.2); RDW Standard Deviation 40.9 fL (35.1-46.3); Red Blood Cell Count 4.49 M/mm3 (4.30-5.90); White Blood Cell Count 3.59 K/mm3 (4.00-11.30)
[2024-05-26 05:50] LABS: IMMATURE GRAN ABSOLUTE AUTO 0.03 K/mm3 (0.00-0.10); IMMATURE GRAN PERCENT AUTO 1 % (0-1); LYMPHOCYTES ABSOLUTE AUTO 0.69 K/mm3 (0.84-5.20); LYMPHOCYTES PERCENT AUTO 19 % (21-46); MONOCYTES ABSOLUTE AUTO 0.44 K/mm3 (0.16-1.47); MONOCYTES PERCENT AUTO 12 % (4-13); NEUTROPHILS ABSOLUTE AUTO 2.36 K/mm3 (1.96-9.15); NEUTROPHILS PERCENT AUTO 66 % (41-73)
[2024-05-26 06:11] LABS: BAND PERCENT MAN 1 % (0-8); BASOPHILS PERCENT MAN 0 % (0-2); EOSINOPHILS PERCENT MAN 0 % (0-6); LYMPHOCYTES ABSOLUTE MAN 0.43 K/mm3 (0.84-5.20); LYMPHOCYTES PERCENT MAN 12 % (21-46); MONOCYTES ABSOLUTE MAN 0.39 K/mm3 (0.16-1.47); MONOCYTES PERCENT MAN 11 % (4-13); NEUTROPHILS ABSOLUTE MAN 2.76 K/mm3 (1.96-9.15); SEG NEUTROPHILS PERCENT MAN 76 % (41-73); TOTAL CELLS COUNTED 100
[2024-05-26 06:14] LABS: Albumin, Blood 3.6 g/dL (3.4-5.0); Albumin/Globulin Ratio 1.1 (0.8-1.8); Bilirubin, Total 2.9 mg/dL (0.1-1.0); Calcium, Blood 8.7 mg/dL (8.5-10.1); Globulin, Blood 3.4 g/dL (2.2-4.0); Thyroid Stimulating Hormone 1.92 uIU/mL (0.360-4.800)
[2024-05-26 06:16] LABS: Bun/Creatinine Ratio 8.8 (12.0-20.0); Creatinine, Blood 8.17 mg/dL (0.60-1.20)
[2024-05-26] MEDS ORDERED: Clopidogrel Bisulfate 75 MG Tab PO SCH (09:00)
[2024-05-26] MEDS ORDERED: Enoxaparin 40 MG/0.4 ML SYR SC SCH (09:00)
[2024-05-26] MEDS ORDERED: Metoprolol Succinate 50 MG TABCR PO SCH (09:00)
[2024-05-26] MEDS ORDERED: Losartan Potassium 25 MG Tab PO SCH (09:00)
[2024-05-26] MEDS ORDERED: Tamsulosin HCl 0.4 MG Cap PO SCH (09:00)
[2024-05-26] MEDS ORDERED: Aspirin 81 MG Chew PO SCH (09:00)
[2024-05-26] MEDS ORDERED: Heparin Sodium,Porcine 5,000 UNIT/0.5 ML SDV SC SCH (09:00)
[2024-05-26] MEDS ORDERED: Multivitamins 1 Tab PO SCH (09:00)
[2024-05-26] MEDS ORDERED: Bumetanide 1 MG Tab PO SCH (09:00)
[2024-05-26] MEDS ORDERED: Benzonatate 100 MG Cap PO SCH (17:35)
--- NOTE | 2024-05-26 18:24 | NUR ---
SHIFT SUMMARY PATIENT LEFT UNIT AT 0830 FOR DIALYSIS, RETURNED AT 1130 THIS AM. HE C/O FREQUENT COUGH MOSTLY DRY BUT DOES HAVE CLEAR MUCUS SPUTUM ON OCCAISION. HE IS UP AD SUDHA IN ROOM WITH SOME FATIGUE BUT AOX4 AND DENIES ANY OTHER SYMPTOMS. BED IN LOW POSITION, CALL LIGHT IN REACH. HE IS ABLE TO MAKE HIS NEEDS KNOWN.
[2024-05-26] MEDS ORDERED: Insulin Glargine-Yfgn 100 Unit/mL 3 ML SYR SC SCH (21:00)
[2024-05-26] MEDS ORDERED: Atorvastatin 40 MG Tab PO SCH (21:00)
[2024-05-26] MEDS ORDERED: Gabapentin 100 MG Cap PO SCH (21:00)
[2024-05-26] MEDS ORDERED: Calcium Acetate 667 MG Gel Cap PO PRN (23:50)
[2024-05-27 03:31] VITALS: BP 107/65
--- NOTE | 2024-05-27 05:40 | NUR ---
SHIFT SUMMARY PT A&OX4 AND ANSWERS QUESTIONS APPROPRIATELY. PT IS INDEPENDENT IN THE ROOM. PT RECEIVED HS MEDICATIONS. BLOOD CULTURES PENDING RESULTS. VSS, NO COMPLAINTS OF CP/PRESSURE OR SOB. NO ACUTE EVENTS AT THIS TIME. PT SPENT MOST OF SHIFT IN BED WITH EYES CLOSED AND RESPIRATIONS EVEN AND UNLABORED. PROPER FALL PRECAUTIONS IN PLACE AND CALL LIGHT IN REACH.
[2024-05-27 07:06] VITALS: BP 103/60
[2024-05-27] MEDS ORDERED: Calcium Acetate 667 MG Gel Cap PO SCH (08:30)
[2024-05-27] MEDS ORDERED: Vitamin B Cmplx/Vit C/Folic Ac 1 Tab PO SCH (09:00)
[2024-05-27] MEDS ORDERED: Sod Ferric Gluc Complx/Sucrose 125 MG in NS 100 ML IV ONE (12:10)
[2024-05-27] MEDS ORDERED: Tessalon200 MG PO (12:28)
--- NOTE | 2024-05-27 16:21 | NUR ---
PT RESTING QUIETLY AT START OF SHIFT. WOKE EASILY FOR SHIFT REPORT. PT ADMITTED FOR UREMIA; RESOLVED. DR MINAYA IN THIS AM TO DISCUSS PLAN OF CARE. PT ABLE AND WANTING TO GO HOME. D/C ORDERS PLACED. PT UP TO SHOWER INDEPENDENTLY. IV IRON GIVEN PER EMAR. D/C INSTRUCTIONS REVIEWED WITH PT; VERBALIZED UNDERSTANDING. PT ASSISTED OUT TO FAMILY CARE VIA W/C. ALL BELONGINGS TAKEN BY PT.
== END 2024-05-27 13:58 | disposition home or self-care (01) ==
LOC: ER 07:41 → MEDS 07:42 → ENPENDDIS 05-27 11:59 → MEDS 05-27 13:58
PROVIDERS: Student in an Organized Health Care Education/Training Program; ADMIT Internal Medicine
DX: E11.22 Type 2 diabetes mellitus with diabetic chronic kidney disease (principal); I13.2 Hypertensive heart and chronic kidney disease with heart failure and with stage 5 chronic kidney disease, or end stage renal disease; I50.22 Chronic systolic (congestive) heart failure; N18.6 End stage renal disease; D63.1 Anemia in chronic kidney disease; E11.65 Type 2 diabetes mellitus with hyperglycemia; E11.42 Type 2 diabetes mellitus with diabetic polyneuropathy; D61.818 Other pancytopenia; I25.10 Atherosclerotic heart disease of native coronary artery without angina pectoris; D50.9 Iron deficiency anemia, unspecified; Z99.2 Dependence on renal dialysis; Z88.8 Allergy status to other drugs, medicaments and biological substances; N25.81 Secondary hyperparathyroidism of renal origin; I35.0 Nonrheumatic aortic (valve) stenosis; N40.0 Benign prostatic hyperplasia without lower urinary tract symptoms; Z79.4 Long term (current) use of insulin; Z79.899 Other long term (current) drug therapy
CPT/HCPCS: 0241U; 36415; 71046; 80053; 81001; 82248; 82533; 82728; 82947; 83540; 83550; 83735; 84100; 84443; 85025; 87040; 93005; 93010; 94640; 94664; 96361; 96372; 96374; 96375; 99285-25; A9270; G0257; G0378; J1644; J1815; J2405; J2916; J7030

== ENCOUNTER 2024-11-04 12:34 | Emergency (ER) | payer OTHER ==
[~2024-11-04] VITALS: Ht 182.9 cm; Wt 81.7 kg
[~2024-11-04 12:34] MED LIST changes: +BASAGLAR K100 UNIT/8 SC; +Tessalon200 MG PO
[2024-11-04 14:15] VITALS: BP 140/71
== END 2024-11-04 15:05 | disposition home or self-care (01) ==
LOC: ER 12:34
DX: S16.1XXA Strain of muscle, fascia and tendon at neck level, initial encounter (principal); S00.03XA Contusion of scalp, initial encounter; I12.0 Hypertensive chronic kidney disease with stage 5 chronic kidney disease or end stage renal disease; E11.22 Type 2 diabetes mellitus with diabetic chronic kidney disease; N18.6 End stage renal disease; E78.5 Hyperlipidemia, unspecified; I25.2 Old myocardial infarction; I25.10 Atherosclerotic heart disease of native coronary artery without angina pectoris; Z99.2 Dependence on renal dialysis; Z87.891 Personal history of nicotine dependence; Z88.5 Allergy status to narcotic agent; Z91.041 Radiographic dye allergy status; Z79.82 Long term (current) use of aspirin; Z79.4 Long term (current) use of insulin; Z79.01 Long term (current) use of anticoagulants; Z79.899 Other long term (current) drug therapy; W01.198A Fall on same level from slipping, tripping and stumbling with subsequent striking against other object, initial encounter; Y99.0 Civilian activity done for income or pay
CPT/HCPCS: 70450; 99283-25

== ENCOUNTER 2024-12-26 06:42 | Emergency (ER) | payer MEDICARE ==
[~2024-12-26] VITALS: Ht 182.9 cm; Wt 90.7 kg
[2024-12-26 08:24] LABS: Source, Urine Voided
[2024-12-26 08:41] LABS: Hematocrit 39.2 % (37.0-53.0); Hemoglobin 12.3 g/dL (13.5-17.5); Mean Corpuscular HGB Conc 31.4 g/dL (31.5-36.5); Mean Corpuscular Volume 67 fL (80-100); Platelet Count 169 K/mm3 (150-400); RDW Coefficient Variation 18.7 % (11.7-14.2); RDW Standard Deviation 41.4 fL (35.1-46.3); Red Blood Cell Count 5.86 M/mm3 (4.30-5.90); White Blood Cell Count 8.59 K/mm3 (4.00-11.30)
[2024-12-26 08:56] LABS: Appearance, Urine Turbid (Clear); Bilirubin, Urine Neg (Neg); Blood, Urine 5+ (Neg); Color, Urine Red (P-Yellow); Glucose Qualitative, Urine 2+ (Neg); Ketones, Urine Neg (Neg); Leukocyte Esterase, Urine Neg (Neg); Nitrite, Urine Neg (Neg); Protein, Urine 4+ (Neg); Specific Gravity, Urine 1.015 (1.003-1.022); Urobilinogen, Urine NORM (Normal)
[2024-12-26 08:58] LABS: Albumin, Blood 4.3 g/dL (3.4-5.0); Albumin/Globulin Ratio 1.1 (0.8-1.8); Bilirubin, Total 3.3 mg/dL (0.1-1.0); Bun/Creatinine Ratio 8.8 (12.0-20.0); Calcium, Blood 11.2 mg/dL (8.5-10.1); Creatinine, Blood 5.32 mg/dL (0.60-1.20); Globulin, Blood 3.8 g/dL (2.2-4.0); Potassium, Blood 3.7 mmol/L (3.5-5.5); Total Protein, Blood 8.1 g/dL (6.4-8.2)
[2024-12-26 09:11] LABS: International Normalized Ratio 1.01; Prothrombin Time Results 10.8 Sec (9.7-11.5); Red Blood Cells, Urine 50-100 /hpf (0-2); Squamous Epithelial Cells Rare /hpf (Few)
[2024-12-26 09:12] LABS: Bacteria Rare /hpf
[2024-12-26 10:35] VITALS: BP 95/69
== END 2024-12-26 10:38 | disposition home or self-care (01) ==
LOC: ER 06:42
PROVIDERS: Student in an Organized Health Care Education/Training Program
DX: N32.89 Other specified disorders of bladder (principal); E11.22 Type 2 diabetes mellitus with diabetic chronic kidney disease; N18.6 End stage renal disease; Z87.891 Personal history of nicotine dependence; Z79.02 Long term (current) use of antithrombotics/antiplatelets; Z79.4 Long term (current) use of insulin; Z79.82 Long term (current) use of aspirin; Z79.899 Other long term (current) drug therapy; Z91.041 Radiographic dye allergy status; Z88.5 Allergy status to narcotic agent; Z99.2 Dependence on renal dialysis
CPT/HCPCS: 74176; 76770; 80053; 81001; 85027; 85610; 85730; 99283-25

== ENCOUNTER 2024-12-28 15:41 | Inpatient (IN) | payer MEDICARE, OTHER ==
[~2024-12-28] VITALS: Ht 182.9 cm; Wt 91.8 kg
[2024-12-28 16:08] LABS: BASOPHILS ABSOLUTE AUTO 0.04 K/mm3 (0.00-0.23); BASOPHILS PERCENT AUTO 0 % (0-2); EOSINOPHILS ABSOLUTE AUTO 0.01 K/mm3 (0.00-0.68); EOSINOPHILS PERCENT AUTO 0 % (0-6); Hematocrit 25.1 % (37.0-53.0); Hemoglobin 8.1 g/dL (13.5-17.5); IMMATURE GRAN ABSOLUTE AUTO 0.05 K/mm3 (0.00-0.10); IMMATURE GRAN PERCENT AUTO 0 % (0-1); LYMPHOCYTES ABSOLUTE AUTO 0.71 K/mm3 (0.84-5.20); LYMPHOCYTES PERCENT AUTO 6 % (21-46); MONOCYTES ABSOLUTE AUTO 0.48 K/mm3 (0.16-1.47); MONOCYTES PERCENT AUTO 4 % (4-13); Mean Corpuscular HGB 21.4 pg (26.0-34.0); Mean Corpuscular HGB Conc 32.3 g/dL (31.5-36.5); Mean Corpuscular Volume 66 fL (80-100); NEUTROPHILS ABSOLUTE AUTO 10.24 K/mm3 (1.96-9.15); NEUTROPHILS PERCENT AUTO 89 % (41-73); NRBC ABSOLUTE 0.02 K/mm3 (0.00-0.02); NRBC Auto 0.2 /100 WBC (0.0-0.2); Platelet Count 161 K/mm3 (150-400); RDW Coefficient Variation 18.2 % (11.7-14.2); RDW Standard Deviation 41.2 fL (35.1-46.3); Red Blood Cell Count 3.78 M/mm3 (4.30-5.90); White Blood Cell Count 11.53 K/mm3 (4.00-11.30)
[2024-12-28 16:09] LABS: Mean Platelet Volume 11.2 fL (9.1-12.4)
[2024-12-28] MEDS ORDERED: NS 1,000 ML IV ONE ×2 (16:19→16:25)
[2024-12-28 17:06] LABS: Albumin, Blood 3.8 g/dL (3.4-5.0); Albumin/Globulin Ratio 1.2 (0.8-1.8); Bilirubin, Total 3.5 mg/dL (0.1-1.0); Bun/Creatinine Ratio 9.6 (12.0-20.0); Calcium, Blood 11.3 mg/dL (8.5-10.1); Creatinine, Blood 8.45 mg/dL (0.60-1.20); Globulin, Blood 3.3 g/dL (2.2-4.0); Total Protein, Blood 7.1 g/dL (6.4-8.2)
[2024-12-28] MEDS ORDERED: Ondansetron HCl 2 MG / ML 2ML Vial IV ONE (17:15)
[2024-12-28 18:36] LABS: International Normalized Ratio 1.01; Prothrombin Time Results 10.8 Sec (9.7-11.5)
[2024-12-28] MEDS ORDERED: Ondansetron HCl 2 MG / ML 2ML Vial IV PRN (20:00)
[2024-12-28] MEDS ORDERED: Insulin Glargine-Yfgn 100 Unit/mL 3 ML SYR SC SCH (21:00)
[2024-12-28] MEDS ORDERED: Insulin Human Lispro 100 Units/ML 3ML Syringe SC SCH (21:00)
[2024-12-28] MEDS ORDERED: Metoclopramide HCl 5MG / ML 2ML Vial IV PRN (21:20)
[2024-12-28] MEDS ORDERED: Pantoprazole Sodium 40 MG Injection IV ONE (22:00)
[2024-12-28] MEDS ORDERED: Hydrocortisone Sod Succinate 100 MG Vial IV ONE (23:00)
[2024-12-28] MEDS ORDERED: DiphenhydrAMINE HCl 50 MG/ML 1ML Vial IV ONE (23:00)
[2024-12-28 23:04] LABS: Hematocrit 29.6 % (37.0-53.0); Hemoglobin 9.6 g/dL (13.5-17.5)
[2024-12-28 23:25] LABS: Base Excess Venous -2.8 mmol/L; Bicarbonate Venous 22.4 mmol/L (24.0-30.0)
[2024-12-28 23:35] VITALS: BP 105/73
[2024-12-29] VITALS (80 sets, daily range): BP systolic 58–131; BP diastolic 38–110
--- NOTE | 2024-12-29 01:20 | NUR ---
ASSUMED CARE FROM ED BETTINA @2278 PATEINT ARRIVED TO ICU 4 VIA GURNEY. A&O X3 SKIN COLOR YELLOWISH PARR. PATIENT ABLE TO ANSWER QUESTIONS. BLOOD PRESSURE 105/67 MAP 79. PULSE 105, 97% O2 SAT. TWO PERIPHERIAL IV'S 20G IN LEFT AC AND LEFT FOREARM. FISTULA IN RIGHT UPPER ARM. RUBIO PLACED NO DRAINAGE. DAUGHTER AT BEDSIDE. CALL LIGHT WITHIN REACH
--- NOTE | 2024-12-29 01:25 | NUR ---
UPDATE @1250 RUBIO STARTED DRAINING TO GRAVITY DARK RED IN COLOR AMOUNT OF 300. PATIENT STATES HE HAS SOME RELIEF OF PRESSURE BUT STILL HAS A LITTLE PRESSURE IN PENIS AREA. DR. KNOWLES AWARE NO NEW ORDERS AT THIS TIME.
[2024-12-29 02:52] LABS: BASOPHILS ABSOLUTE AUTO 0.03 K/mm3 (0.00-0.23); BASOPHILS PERCENT AUTO 0 % (0-2); EOSINOPHILS PERCENT AUTO 0 % (0-6); Hematocrit 29.8 % (37.0-53.0); Hemoglobin 9.9 g/dL (13.5-17.5); IMMATURE GRAN ABSOLUTE AUTO 0.07 K/mm3 (0.00-0.10); IMMATURE GRAN PERCENT AUTO 1 % (0-1); LYMPHOCYTES ABSOLUTE AUTO 0.56 K/mm3 (0.84-5.20); LYMPHOCYTES PERCENT AUTO 4 % (21-46); MONOCYTES ABSOLUTE AUTO 0.45 K/mm3 (0.16-1.47); MONOCYTES PERCENT AUTO 3 % (4-13); Mean Corpuscular HGB 22.8 pg (26.0-34.0); Mean Corpuscular HGB Conc 33.2 g/dL (31.5-36.5); Mean Corpuscular Volume 69 fL (80-100); NEUTROPHILS ABSOLUTE AUTO 14.43 K/mm3 (1.96-9.15); NEUTROPHILS PERCENT AUTO 93 % (41-73); NRBC ABSOLUTE 0.03 K/mm3 (0.00-0.02); NRBC Auto 0.2 /100 WBC (0.0-0.2); Platelet Count 154 K/mm3 (150-400); RDW Standard Deviation 49.4 fL (35.1-46.3); Red Blood Cell Count 4.35 M/mm3 (4.30-5.90); White Blood Cell Count 15.54 K/mm3 (4.00-11.30)
[2024-12-29 03:04] LABS: Mean Platelet Volume 10.6 fL (9.1-12.4)
[2024-12-29 03:11] LABS: International Normalized Ratio 1.03
[2024-12-29 03:16] LABS: Magnesium, Blood 2.2 mg/dL (1.6-2.4)
[2024-12-29 03:26] LABS: Albumin, Blood 3.6 g/dL (3.4-5.0); Albumin/Globulin Ratio 1.1 (0.8-1.8); Bilirubin, Total 5.1 mg/dL (0.1-1.0); Bun/Creatinine Ratio 9.9 (12.0-20.0); Calcium, Blood 10.5 mg/dL (8.5-10.1); Globulin, Blood 3.3 g/dL (2.2-4.0); Potassium, Blood 4.5 mmol/L (3.5-5.5); Total Protein, Blood 6.9 g/dL (6.4-8.2)
[2024-12-29 03:28] LABS: Creatinine, Blood 8.91 mg/dL (0.60-1.20)
--- NOTE | 2024-12-29 05:16 | NUR ---
SHIFT SUMMARY PATIENT ARRIVED FROM ED @2335. PATIENT A&O X4 WITH DAUGHTER SOPHY AT BEDSIDE. PATIENT'S COLORED GRAYISH YELLOW. LUNGS CLEAR BILATERALLY, PATIENT HAS A RIGHT FISTULA UPPER ARM FOR DUIALYSIS WHICH HE GETS ON , , AND SAT. PATIENT STATED HE MISSED SATURDAY DUE TO THE BLOOD IN URINE AND BEING AT ED. PATIENT HAS TWO PERIPHERIAL IV'S ON LEFT SIDE ONE IN AC AND ONE IN FOREARM BOTH 20G.PATIENT HAS RUBIO DRAINING TO GRAVITY, WHAT IS DRAINING OUT IN DARK RED IN COLOR NO CLOTS AND MD AWARE. SBP 100-115'S, HR IN THE 100-115'S. O2 SAT AT 95% WITH 3L VIA NC WHEN SLEEPING. PATIENT RECIEVED 2 UNITS OF BLOOD IN ED @0230 HGB 9.9 ORDER FOR ANOTHER H&H @ 0700 PER (ELENI). CALL LIGHT WITHIN REACH.
[2024-12-29] MEDS ORDERED: Pantoprazole Sodium 40 MG Injection IV SCH (06:00)
[2024-12-29 07:35] LABS: Hematocrit 29.9 % (37.0-53.0); Hemoglobin 9.9 g/dL (13.5-17.5)
[2024-12-29] MEDS ORDERED: Clopidogrel Bisulfate 75 MG Tab PO SCH (09:00)
[2024-12-29] MEDS ORDERED: Atorvastatin 40 MG Tab PO SCH (09:00)
[2024-12-29] MEDS ORDERED: Aspirin 81 MG Chew PO SCH (09:00)
[2024-12-29] MEDS ORDERED: Lidocaine 2% Jelly Uro-Jet UR ONE (09:40)
[2024-12-29] MEDS ORDERED: Metoprolol Succinate 25 MG TABCR PO SCH (09:55)
--- NOTE | 2024-12-29 13:40 | NUR ---
ASSUMED CARE AT 0700. ON ASSESSMENT AND CHART REVIEW, PATIENT HAS A TWO WAY RUBIO AND OUTPUT OF >100CC DARK BLOODY URINE. DR. BOSTON CALLED TO CLARIFY ORDERS AND HER ORDERS WERE TO EXCHANGE RUBIO FOR 3 WAY RUBIO AND START CONTINOUS BLADDER IRRIGATION. RUBIO EXCHANGE WITH PROBLEM, HOWEVER MANUAL IRRIGATION OF CATHETER WAS NEEDED X2 FOR CLOT PASSAGE. ORDERED TO TITRATE CBI TO PINK/LIGHT PINK OUTPUT. CATHETER CLOTTED ANOTHER TIME ABOUT 90 MINS AFTER CBI START. IRRIGATED MANUALLY AGAIN WITHOUT ISSUE. 0845- DR. PATEL AT BEDSIDE TO DISCUSS CARDIAC WORKUP. PATIENT'S TROP CONTINUES TO RISE WITH MOST RECENT IN 29,000'S. UNABLE TO DO CARDIAC INTERVENTION D/T PT'S INABILITY TO HAVE ANTICOAGULATION. PT REPORTS MILD CHEST PAIN SIMILAR TO YESTERDAY'S PRESENTATION. DR. PATEL STATING THAT MEDICAL MANAGEMENT IS THE OPTION FOR NOW. NO MORE TROPS AT THIS TIME, WILL ONLY LOOK AT PATIENT'S CLINICAL PRESENTATION. SOME ST ALARMS ON TELE TURNED OFF WITH DOCTOR'S APPROVAL.
[2024-12-29 13:51] LABS: Hematocrit 28.7 % (37.0-53.0); Hemoglobin 9.7 g/dL (13.5-17.5)
[2024-12-29] MEDS ORDERED: Insulin Regular 100 UNIT/ML 10ML Vial SC SCH (16:30)
--- NOTE | 2024-12-29 17:16 | NUR ---
DR. PATEL CALLED TO BEDSIDE FOR CONCERN OF WORSENING ST SEGMENT CHANGES. PT NOT EXPERIENCING ANY MORE CHEST PAIN. MOST PAIN (5/10) IS IN THE BLADDER. DR. PATEL AT BEDSIDE TO CONFIRM PT'S RHYTHM AND TO UPDATE PT, FAMILY AND RN THAT THESE CHANGES ARE NO CONCERN RIGHT NOW, STATING THAT WE ARE AWARE THAT PATIENT IS HAVING AN INFARCT. NO NEW ORDERS.
[2024-12-29] MEDS ORDERED: Albumin (Human) 12.5gm/250ml 250 ML IV ONE ×2 (18:05→18:35)
[2024-12-29 18:06] LABS: Hematocrit 29.4 % (37.0-53.0); Hemoglobin 9.9 g/dL (13.5-17.5)
[2024-12-29] MEDS ORDERED: NS 1,000 ML IV ONE ×3 (19:02→23:10)
[2024-12-29] MEDS ORDERED: Hydrocortisone Sod Succinate 100 MG Vial IV ONE (19:15)
--- NOTE | 2024-12-29 19:45 | NUR ---
PATIENT LAID FLAT FOR BOOST UP IN BED. PT LOST HIS MENTATION AND START SLURRING SPEECH FOR 1-2 MINS. PT'S BP STILL LOW 63/38 (54) ON CHECK. 1L NS BOLUS STARTED. MANAGER EMERGENCY AT BEDSIDE. MENTATION IMPROVING. DR. DOUGHERTY AT BEDSIDE FOR ASSESSMENT. ORDER IN FOR LEVO IF NEEDED AFTER FLUIDS. DAUGHTERS AT BEDSIDE AND ALL QUESTIONS ANSWERED. NEPH AND CARDS CALLED AND NOTIFIED OF EVENT. HANDOFF GIVEN TO DAMIEN MÁRQUEZ.
[2024-12-29] MEDS ORDERED: NS 500 ML IV ONE (20:15)
[2024-12-29] MEDS ORDERED: NS 600 ML IV ONE (23:00)
--- NOTE | 2024-12-30 00:10 | NUR ---
ASSUMED CARE AT APPROX 1900. DURING BEDSIDE SHIFT REPORT PATIENT HAVING ALTERED MENTAL STATUS/UNRESPONSIVE, LABORED BREATHING. BP HYPOTENSIVE. FLUIDS GIVEN WELL ALBUMIN, AND STEROIDS, SEE EMAR. PATIENT REMAINED HYPOTENSIVE, NEPHROLOGY, CARDIOLOGY AND HOSPITALIST AWARE. ORDERS TO START LEVOPHED. PATIENT BECAME MORE ALERT AND ORIENTED X 2-3, NONSENSICLE AT TIMES. 02 SATS 93% ON 6L VIA NC UP FROM 3L AT START OF SHIFT. LS CLEAR T/O. RUBIO WITH CONTINUOUS IRRIGATION, PINK TO RED URINE OUTPUT. LEVOPHED TITRATED UP. FAMILY CALLED DUE TO PATIENT BECOMING UNRESPONSIVE SEVERAL MORE TIMES AND DECLINING STATUS, PATIENT MADE DNR. FAMILY AT [facility]. NEED FOR CENTRAL LINE DISCUSSION BETWEEN DR. CAZARES AND FAMILY AND ULTIMATELY IT WAS DECIDED TO PLACE CENTRAL LINE. SEVERAL ATTEMPTS UNSUCCESFUL. DURING LAST ATTEMPT PATIENT BECAME UNRESPONSIVE AND STOPPED BREATHING. TOD 5217, DR. KNOWLES AT BEDSIDE AND FAMILY BROUGHT TO THE ROOM. FAMILY TOOK PATIENTS BELONGINGS HOME
== END 2024-12-29 23:38 ==
LOC: ER 15:41 → ICUE 19:58 → ERHOLD 19:58 → ICUE 23:25
PROVIDERS: Family Medicine; Nurse Practitioner Acute Care; Physician Assistant; Student in an Organized Health Care Education/Training Program; ADMIT Student in an Organized Health Care Education/Training Program
PROC: 0T9B70Z Drainage of Bladder with Drainage Device, Via Natural or Artificial Opening (ICD-10-PCS; principal; 2024-12-28)
PROC: 3E03329 Introduction of Other Anti-infective into Peripheral Vein, Percutaneous Approach (ICD-10-PCS; 2024-12-28)
PROC: 3E033XZ Introduction of Vasopressor into Peripheral Vein, Percutaneous Approach (ICD-10-PCS; 2024-12-29)
PROC: 30233J1 Transfusion of Nonautologous Serum Albumin into Peripheral Vein, Percutaneous Approach (ICD-10-PCS; 2024-12-29)
DX: I21.4 Non-ST elevation (NSTEMI) myocardial infarction (principal); N18.6 End stage renal disease; I50.22 Chronic systolic (congestive) heart failure; I13.2 Hypertensive heart and chronic kidney disease with heart failure and with stage 5 chronic kidney disease, or end stage renal disease; D62 Acute posthemorrhagic anemia; C22.8 Malignant neoplasm of liver, primary, unspecified as to type; Z66 Do not resuscitate; Z51.5 Encounter for palliative care; E87.20 Acidosis, unspecified; Z99.2 Dependence on renal dialysis; N40.0 Benign prostatic hyperplasia without lower urinary tract symptoms; E83.52 Hypercalcemia; I44.7 Left bundle-branch block, unspecified; R57.0 Cardiogenic shock; I25.10 Atherosclerotic heart disease of native coronary artery without angina pectoris; Z95.5 Presence of coronary angioplasty implant and graft; Z95.1 Presence of aortocoronary bypass graft; E11.22 Type 2 diabetes mellitus with diabetic chronic kidney disease; R31.0 Gross hematuria; Z88.5 Allergy status to narcotic agent; Z91.041 Radiographic dye allergy status; Z79.82 Long term (current) use of aspirin; Z79.899 Other long term (current) drug therapy; Z79.02 Long term (current) use of antithrombotics/antiplatelets; Z90.49 Acquired absence of other specified parts of digestive tract; Z87.891 Personal history of nicotine dependence; I25.2 Old myocardial infarction; Z79.4 Long term (current) use of insulin
CPT/HCPCS: 36415; 36430; 51700; 51702; 51798; 70450; 71045; 72125; 74178; 80053; 82330; 82533; 82803; 82947; 83605; 83690; 83735; 83880; 84443; 84484; 85014; 85018; 85025; 85610; 86850; 86900; 86901; 86923; 93005; 93010; 94762; 96374; 99285-25; A9270; C8929; J1200; J1720; J1815; J2405; J2470; J2765; J7030; J7040; J7060; P9016; P9045; Q9957; Q9967